=== PATIENT | male | born 1960 | race African-American/Black ===

== ENCOUNTER 2017-06-27 12:18 | Inpatient (IN) | payer OTHER ==
[2017-06-27 14:21] VITALS: BMI 34.7
--- NOTE | 2017-06-27 17:42 | HP ---
Admission ROS [facility] Chief Complaint: REHAB SERVICES Allergies/Adverse Reactions: Allergies Allergy/AdvReac Type Severity Reaction Status Date / Time shellfish derived Allergy Severe Swelling Verified 06/27/17 16:25 NKDA Allergy Uncoded 06/27/17 16:26 History of Present Illness: 56 Y.O. MAN WITH AN EXTENSIVE HISTORY OF COCAINE AND ALCOHOL DEPENDENCE IS HERE SEEKING HIS FIRST ADMISSION TO REHAB. DOES NOT HAVE A SIGNIFICANT PERIOD CLEAN. Exam Limitations: No Limitations - Ebola screening Have you traveled outside of the country in the last 21 days: No (N) Have you had contact with anyone from an Ebola affected area: No Have you been sick,other than usual withdrawal symptoms: No Do you have a fever: No - Review of Systems Constitutional: No Symptoms Reported EENT: reports: No Symptoms Reported Respiratory: reports: No Symptoms reported Cardiac: reports: No Symptoms Reported GI: reports: No Symptoms Reported : reports: Frequency, Other (HESITANCY) Musculoskeletal: reports: No Symptoms Reported Integumentary: reports: No Symptoms Reported Neuro: reports: No Symptoms reported Endocrine: reports: No Symptoms Reported Hematology: reports: No Symptoms Reported Psychiatric: reports: Judgement Intact, Mood/Affect Appropiate Other Systems: Reviewed and Negative Patient History - Patient Medical History Hx Anemia: No Hx Asthma: Yes Hx Chronic Obstructive Pulmonary Disease (COPD): No Hx Cancer: No Hx Cardiac Disorders: No Hx Congestive Heart Failure: No Hx Hypertension: Yes Hx Hypercholesterolemia: Yes Hx Pacemaker: No HX Cerebrovascular Accident: No Hx Seizures: No Hx Dementia: No Hx Diabetes: Yes (IDDM) Hx Gastrointestinal Disorders: No Hx Liver Disease: No Hx Genitourinary Disorders: No Hx Sexually Transmitted Disorders: No Hx Renal Disease (ESRD): Yes (JENNY ) Hx Thyroid Disease: Yes (HYPOTHYROID ) Hx Human Immunodeficiency Virus (HIV): No Hx Hepatitis C: No Hx Depression: No Hx Suicide Attempt: No Hx Bipolar Disorder: No Hx Schizophrenia: No - Patient Surgical History Past Surgical History: Yes Hx Neurologic Surgery: No Hx Cataract Extraction: No Hx Cardiac Surgery: No Hx Lung Surgery: No Hx Breast Surgery: No Hx Breast Biopsy: No Hx Abdominal Surgery: Yes (umbilical hernia repair in 2009) Hx Appendectomy: No Hx Cholecystectomy: No Hx Genitourinary Surgery: No Hx Section: No Hx Orthopedic Surgery: No Anesthesia Reaction: No - PPD History Previous Implant?: Yes Documented Results: Negative w/o proof Implanted On Prior [facility] Admission?: No PPD to be Administered?: Yes - Reproductive History Patient is a Female of Child Bearing Age (11 -55 yrs old): No - Smoking Cessation Smoking history: Current every day smoker Have you smoked in the past 12 months: Yes Aproximately how many cigarettes per day: 7 Hx Chewing Tobacco Use: No Initiated information on smoking cessation: Yes 'Breaking Loose' booklet given: 06/27/17 - Substance & Tx. History Hx Alcohol Use: Yes Hx Substance Use: Yes Substance Use Type: Alcohol, Cocaine Hx Substance Use Treatment: No - Substances Abused Crack Route: Smoking Frequency: 1-2 times per week Amount used: $100 Age of first use: 34 Date of Last Use: 06/20/17 [place]-beer/vodka Route: Oral Frequency: 1-2 times per week Amount used: 1 (16 oz.)/1/2 pt. Age of first use: 24 Date of Last Use: 06/23/17 Family Disease History - Family Disease History Family Disease History: Diabetes: Brother (), Heart Disease: Mother, Other: Father ( ), Brother Admission Physical Exam S - Vital Signs Vital Signs: Vital Signs - 24 hr 06/27/17 14:09 Temperature 98.9 F Pulse Rate 73 Respiratory 18 Rate Blood Pressure 160/92 - Physical General Appearance: Yes: Disheveled, Obese, Anxious HEENTM: Yes: Hearing grossly Normal, Normal ENT Inspection, Normal Voice Respiratory: Yes: Chest Non-Tender, Lungs Clear, Normal Breath Sounds, No Respiratory Distress, No Accessory Muscle Use Neck: Yes: No masses,lesions,Nodules, Trachea in good position Breast: Yes: Breast Exam Deferred Cardiology: Yes: Regular Rhythm, Regular Rate Abdominal: Yes: Normal Bowel Sounds, Non Tender, Flat Genitourinary: Yes: Frequency, Hesitency Back: Yes: Normal Inspection Musculoskeletal: Yes: full range of Motion, Gait Steady Extremities: Yes: Normal Inspection, Normal Range of Motion, Non-Tender Neurological: Yes: Alert, Normal Mood/Affect, Normal Response Integumentary: Yes: Normal Color, Dry, Warm Lymphatic: Yes: Within Normal Limits - Diagnostic (1) Asthma Current Visit: Yes Status: Chronic (2) Hypertension Current Visit: Yes Status: Chronic (3) Hyperlipidemia Current Visit: Yes Status: Chronic (4) JENNY (acute kidney injury) Current Visit: Yes Status: Acute (5) Hypothyroid Current Visit: Yes Status: Chronic (6) Insulin dependent diabetes mellitus Current Visit: Yes Status: Chronic (7) Cocaine dependence Current Visit: Yes Status: Chronic (8) Alcohol dependence, uncomplicated Current Visit: Yes Status: Chronic Cleared for Admission [facility] - Detox or Rehab [facility] Level of Care: Observation Bed Claeared for Rehab Admission: Yes [facility] Breath Alcohol Content Breath Alcohol Content: 0 Urine Drug Screen - Results Drug Screen Negative: No Urine Drug Screen Results: MANUEL-Cocaine, OXY-Oxycodone Inpatient Rehab Admission - Initial Determination Are CD services needed?: Yes Free of communicable disease: Yes Not in need of hospitalization: Yes - Rehab Admission Criteria Previous failed treatment: Yes Poor recovery environment: Yes Comorbidities: Yes Lacks judgement: Yes Patient is meeting Inpatient Rehab admission criteria:: Yes
[2017-06-27] MEDS ORDERED: MAG HYDROX/AL HYDROX/SIMETH 30 ML UNIT-DOSE CUP PO PRN (18:01)
[2017-06-27] MEDS ORDERED: LOPERAMIDE HCL 2 MG CAPSULE PO PRN (18:01)
[2017-06-27] MEDS ORDERED: ACETAMINOPHEN 325 MG TABLET (FP) PO PRN (18:01)
[2017-06-27] MEDS ORDERED: MAGNESIUM HYDROX 2400MG/30ML ORAL SUSPENSION 30 ML CUP PO PRN (18:01)
[2017-06-27] MEDS ORDERED: guaiFENesin/D-METHORPHAN HB 10 ML UNIT-DOSE CUPS PO PRN (18:01)
[2017-06-27] MEDS ORDERED: MENTHOL/PHENOL 1 EACH UD MM PRN (18:01)
[2017-06-27] MEDS ORDERED: P-EPHED 60MG/TRIPROLIDI 2.5MG TABLET PO PRN (18:01)
[2017-06-27] MEDS ORDERED: MAGNESIUM CITRATE 300 ML BOTTLE PO PRN (18:01)
[2017-06-27] MEDS ORDERED: ALBUTEROL SO4 18 GM HFA INHALER IH PRN (18:03)
[2017-06-27] MEDS ORDERED: TUBERCULIN PPD 5 TU/0.1ML VIAL ID ONE (19:33)
[2017-06-27] MEDS: THIAMINE HCL 100 MG TABLET (FP) PO SCH (21:16)
[2017-06-27 22:28] LABS: URINE APPEARANCE CLEAR; URINE BILIRUBIN NEGATIVE (NEGATIVE); URINE BLOOD NEGATIVE (NEGATIVE); URINE COLOR STRAW; URINE GLUCOSE (UA) NEGATIVE (NEGATIVE); URINE KETONE NEGATIVE (NEGATIVE); URINE LEUK ESTERASE NEGATIVE (NEGATIVE); URINE NITRITE NEGATIVE (NEGATIVE); URINE UROBILINOGEN NEGATIVE mg/dL (0.2-1.0)
[2017-06-27 22:37] LABS: URINE PROTEIN 2+ (NEGATIVE)
[2017-06-27 22:50] LABS: URINE HYALINE CAST 1 /lpf
[2017-06-28] MEDS: glipiZIDE-XL 10 MG TAB.ER.24 (FP) PO SCH (06:26)
[2017-06-28] MEDS: LEVOTHYROXINE NA 100 MCG TABLET (FP) PO SCH (06:26)
[2017-06-28] MEDS: INSULIN SLIDING SCALE (NOVOLOG) 1 VIAL SQ SCH ×3 (06:27→16:45)
[2017-06-28] MEDS: ASPIRIN 81 MG CHEWABLE TABLETS PO SCH (09:42)
[2017-06-28] MEDS: LISINOPRIL 10 MG TABLET (FP) PO SCH (09:42)
[2017-06-28] MEDS: PRENATAL VITAMINS W/ FOLIC ACID TABLET (FP) PO SCH (09:42)
[2017-06-28 10:37] LABS: HEMATOCRIT 33.9 % (35.4-49); MCH 29.2 pg (25.7-33.7); MCHC 32.6 g/dl (32.0-35.9); MEAN CELL VOLUME 89.6 fl (80-96); MEAN PLT VOLUME 9.7 fl (7.5-11.1); PLATELET COUNT 205 K/MM3 (134-434); RBC 3.78 M/mm3 (4.00-5.60); WHITE BLOOD COUNT 5.4 K/mm3 (4.0-10.0)
[2017-06-28 10:50] LABS: ALBUMIN 3.5 g/dl (3.4-5.0); ANION GAP 5 (8-16); BLOOD UREA NITROGEN 32 mg/dL (7-18); CALCIUM 8.3 mg/dL (8.5-10.1); CHLORIDE 107 mmol/L (98-107); CO2 27 mmol/L (21-32); CREATININE 4.4 mg/dL (0.7-1.3); GLUCOSE,RANDOM 87 mg/dL (74-106); POTASSIUM 5.2 mmol/L (3.5-5.1); SGOT/AST 38 U/L (15-37); SGPT/ALT 36 U/L (12-78); SODIUM 139 mmol/L (136-145)
[2017-06-28 10:51] LABS: ALK PHOS 54 U/L (45-117); BILIRUBIN,TOTAL 0.5 mg/dL (0.2-1.0); TOT PROT 6.7 g/dl (6.4-8.2)
[2017-06-28] MEDS ORDERED: INSULIN (NOVOLOG) ASPART 100 UNITS/ML 10ML VIAL ONE ×2 (11:56→16:46)
--- NOTE | 2017-06-28 15:58 | EKG ---
Test Reason : Blood Pressure : / mmHG Vent. Rate : 062 BPM Atrial Rate : 062 BPM P-R Int : 188 ms QRS Dur : 110 ms QT Int : 426 ms P-R-T Axes : 066 071 130 degrees QTc Int : 432 ms NORMAL SINUS RHYTHM WITH SINUS ARRHYTHMIA NONSPECIFIC T WAVE ABNORMALITY ABNORMAL ECG NO PREVIOUS ECGS AVAILABLE Confirmed by JOANN LINTON MD ([id number]) on 06/28/2017 3:58:16 PM Referred By: Confirmed By:JOANN LINTON MD
[2017-06-28] MEDS: THIAMINE HCL 100 MG TABLET (FP) PO SCH (21:04)
[2017-06-29] MEDS: LEVOTHYROXINE NA 100 MCG TABLET (FP) PO SCH (06:02)
[2017-06-29] MEDS: INSULIN SLIDING SCALE (NOVOLOG) 1 VIAL SQ SCH ×3 (06:02→16:35)
[2017-06-29] MEDS: glipiZIDE-XL 10 MG TAB.ER.24 (FP) PO SCH (06:02)
[2017-06-29] MEDS: LISINOPRIL 10 MG TABLET (FP) PO SCH (09:45)
[2017-06-29] MEDS: ASPIRIN 81 MG CHEWABLE TABLETS PO SCH (09:45)
[2017-06-29] MEDS: PRENATAL VITAMINS W/ FOLIC ACID TABLET (FP) PO SCH (09:45)
[2017-06-29] MEDS ORDERED: SODIUM POLYSTYRENE SULFONATE 15 GM/60 ML BOTTLE PO ONE (19:09)
--- NOTE | 2017-06-29 19:09 | PN ---
[facility] Progress Note Note: Lab with high K+ value (5.2), 15g kayexalate ordered because BUN and CREAT are elevated. Repeat BMP tomorrow.
[2017-06-29] MEDS: THIAMINE HCL 100 MG TABLET (FP) PO SCH (21:04)
[2017-06-30] MEDS: hydrOXYzine PAMOATE 50 MG CAPSULE (FP) PO PRN (03:21)
[2017-06-30] MEDS: LEVOTHYROXINE NA 100 MCG TABLET (FP) PO SCH (06:31)
[2017-06-30] MEDS: glipiZIDE-XL 10 MG TAB.ER.24 (FP) PO SCH (06:31)
[2017-06-30] MEDS: INSULIN SLIDING SCALE (NOVOLOG) 1 VIAL SQ SCH ×3 (06:32→16:49)
[2017-06-30] MEDS: ASPIRIN 81 MG CHEWABLE TABLETS PO SCH (09:53)
[2017-06-30] MEDS: PRENATAL VITAMINS W/ FOLIC ACID TABLET (FP) PO SCH (09:53)
[2017-06-30] MEDS: LISINOPRIL 10 MG TABLET (FP) PO SCH (09:53)
[2017-06-30 14:29] LABS: ANION GAP 4 (8-16); BLOOD UREA NITROGEN 41 mg/dL (7-18); CALCIUM 8.7 mg/dL (8.5-10.1); CHLORIDE 106 mmol/L (98-107); CO2 30 mmol/L (21-32); CREATININE 4.2 mg/dL (0.7-1.3); GLUCOSE,RANDOM 102 mg/dL (74-106); SODIUM 140 mmol/L (136-145)
--- NOTE | 2017-06-30 15:31 | HP ---
Psychiatrist Admission - Data Date of interview: 06/30/17 Admission source: [facility] Identifying data: This is the first 5N inpatient rehabilitation admission for this 56 year old AA male father of 4, supported by [facility] and currently homeless. Medical History: asthma, HTN, hypercholesterolemia, IDDM, acute kidney injury, hypothyroidism, umbilical hernia, smokes cigarettes 7 a day Psychiatric History: Patient denies contact with a psychiatrist but states he feels depressed due to the loss of his year ago and being homeless. Physical/Sexual Abuse/Trauma History: Denies history of sexual, physical and verbal abuse. Additional Comment: Patient reports he never been in rehab/detox. treatment. Vital Signs: Vital Signs - 24 hr 06/30/17 06/30/17 00:30 06:44 Temperature 98.0 F Pulse Rate 72 Respiratory 18 18 Rate Blood Pressure 155/83 Allergies/Adverse Reactions: Allergies Allergy/AdvReac Type Severity Reaction Status Date / Time shellfish derived Allergy Severe Swelling Verified 06/27/17 16:25 No Known Drug Allergies Allergy Verified 06/27/17 18:32 NKDA Allergy Uncoded 06/27/17 16:26 Date of last physical exam: 06/27/17 Concur with the findings of this exam: Yes - Substance Abuse/Tx History Hx Alcohol Use: Yes (1-2 times a week, 6 oz beer, 1/2 pint vodka) Hx Substance Use: Yes Substance Use Type: Cocaine ($100 1-2 times a week) Hx Substance Use Treatment: No Mental Status Exam - Mental Status Exam Alert and Oriented to: Time, Place, Person Cognitive Function: Grossly Intact Patient Appearance: Unkempt Mood: Depressed, Sad Affect: Appropriate, Mood Congruent Patient Behavior: Appropriate, Cooperative Speech Pattern: Clear, Appropriate Voice Loudness: Normal Thought Process: Intact, Goal Oriented Thought Disorder: Not Present Hallucinations: Denies Suicidal Ideation: Denies Homicidal Ideation: Denies Insight/Judgement: Fair Sleep: Fair Appetite: Good Muscle strength/Tone: Normal Gait/Station: Normal Psychiatric Findings - Problem List ([place] 1, 2,3) (1) Alcohol dependence Current Visit: Yes Status: Acute (2) Nicotine dependence Current Visit: Yes Status: Acute (3) Bereavement Current Visit: Yes Status: Acute (4) Cocaine dependence Current Visit: Yes Status: Chronic - Initial Treatment Plan Initial Treatment Plan: psychoeducation and supportive therapy provided, monitor progress.
[2017-06-30] MEDS: THIAMINE HCL 100 MG TABLET (FP) PO SCH (21:03)
[2017-07-01] MEDS: INSULIN SLIDING SCALE (NOVOLOG) 1 VIAL SQ SCH ×3 (06:00→17:08)
[2017-07-01] MEDS: LEVOTHYROXINE NA 100 MCG TABLET (FP) PO SCH (06:00)
[2017-07-01] MEDS: glipiZIDE-XL 10 MG TAB.ER.24 (FP) PO SCH (06:00)
[2017-07-01] MEDS: LISINOPRIL 10 MG TABLET (FP) PO SCH (09:38)
[2017-07-01] MEDS: PRENATAL VITAMINS W/ FOLIC ACID TABLET (FP) PO SCH (09:38)
[2017-07-01] MEDS: ASPIRIN 81 MG CHEWABLE TABLETS PO SCH (09:38)
--- NOTE | 2017-07-01 09:47 | PN ---
[facility] Progress Note (SOAP) Subjective: C/O CORNS AND CALUSES ANDPAINFUL DRY FEET. Objective: 07/01/17 09:45 Vital Signs - 24 hr 07/01/17 07/01/17 07/01/17 00:30 03:30 06:33 Temperature 98.1 F Pulse Rate 81 Respiratory 18 18 18 Rate Blood Pressure 147/73 Laboratory Tests 06/27/17 06/27/17 06/27/17 16:50 19:41 20:11 WBC RBC Hgb Hct MCV MCH MCHC RDW Plt Count MPV Sodium Potassium Chloride Carbon Dioxide Anion Gap BUN Creatinine Creat Clearance w eGFR POC Glucometer 153 83 Random Glucose Calcium Total Bilirubin AST ALT Alkaline Phosphatase Total Protein Albumin Urine Color Straw Urine Appearance Clear Urine pH 5.0 Ur Specific [place] 1.012 Urine Protein 2+ H Urine Glucose (UA) Negative Urine Ketones Negative Urine Blood Negative Urine Nitrite Negative Urine Bilirubin Negative Urine Urobilinogen Negative Ur Leukocyte Esterase Negative Urine WBC (Auto) <1 Urine RBC (Auto) <1 Hyaline Casts 1 RPR Titer 06/28/17 06/28/17 06/28/17 06:26 08:00 08:00 WBC 5.4 RBC 3.78 L Hgb 11.0 L Hct 33.9 L MCV 89.6 MCH 29.2 MCHC 32.6 RDW 15.0 Plt Count 205 MPV 9.7 Sodium 139 Potassium 5.2 H Chloride 107 Carbon Dioxide 27 Anion Gap 5 L BUN 32 H Creatinine 4.4 H Creat Clearance w eGFR 13.93 POC Glucometer 87 Random Glucose 87 Calcium 8.3 L Total Bilirubin 0.5 AST 38 H ALT 36 Alkaline Phosphatase 54 Total Protein 6.7 Albumin 3.5 Urine Color Urine Appearance Urine pH Ur Specific [place] Urine Protein Urine Glucose (UA) Urine Ketones Urine Blood Urine Nitrite Urine Bilirubin Urine Urobilinogen Ur Leukocyte Esterase Urine WBC (Auto) Urine RBC (Auto) Hyaline Casts RPR Titer 06/28/17 06/28/17 06/28/17 08:00 11:50 16:44 WBC RBC Hgb Hct MCV MCH MCHC RDW Plt Count MPV Sodium Potassium Chloride Carbon Dioxide Anion Gap BUN Creatinine Creat Clearance w eGFR POC Glucometer 130 162 Random Glucose Calcium Total Bilirubin AST ALT Alkaline Phosphatase Total Protein Albumin Urine Color Urine Appearance Urine pH Ur Specific [place] Urine Protein Urine Glucose (UA) Urine Ketones Urine Blood Urine Nitrite Urine Bilirubin Urine Urobilinogen Ur Leukocyte Esterase Urine WBC (Auto) Urine RBC (Auto) Hyaline Casts RPR Titer Nonreactive 06/29/17 06/29/17 06/29/17 06:02 12:07 16:34 WBC RBC Hgb Hct MCV MCH MCHC RDW Plt Count MPV Sodium Potassium Chloride Carbon Dioxide Anion Gap BUN Creatinine Creat Clearance w eGFR POC Glucometer 94 99 129 Random Glucose Calcium Total Bilirubin AST ALT Alkaline Phosphatase Total Protein Albumin Urine Color Urine Appearance Urine pH Ur Specific [place] Urine Protein Urine Glucose (UA) Urine Ketones Urine Blood Urine Nitrite Urine Bilirubin Urine Urobilinogen Ur Leukocyte Esterase Urine WBC (Auto) Urine RBC (Auto) Hyaline Casts RPR Titer 06/30/17 06/30/17 06/30/17 06:31 08:40 10:40 WBC RBC Hgb Hct MCV MCH MCHC RDW Plt Count MPV Sodium Cancelled 140 Potassium Cancelled 5.0 Chloride Cancelled 106 Carbon Dioxide Cancelled 30 Anion Gap Cancelled 4 L BUN Cancelled 41 H D Creatinine Cancelled 4.2 H Creat Clearance w eGFR POC Glucometer 115 Random Glucose Cancelled 102 Calcium Cancelled 8.7 Total Bilirubin AST ALT Alkaline Phosphatase Total Protein Albumin Urine Color Urine Appearance Urine pH Ur Specific [place] Urine Protein Urine Glucose (UA) Urine Ketones Urine Blood Urine Nitrite Urine Bilirubin Urine Urobilinogen Ur Leukocyte Esterase Urine WBC (Auto) Urine RBC (Auto) Hyaline Casts RPR Titer 06/30/17 06/30/17 07/01/17 12:00 16:49 06:00 WBC RBC Hgb Hct MCV MCH MCHC RDW Plt Count MPV Sodium Potassium Chloride Carbon Dioxide Anion Gap BUN Creatinine Creat Clearance w eGFR POC Glucometer 120 190 118 Random Glucose Calcium Total Bilirubin AST ALT Alkaline Phosphatase Total Protein Albumin Urine Color Urine Appearance Urine pH Ur Specific [place] Urine Protein Urine Glucose (UA) Urine Ketones Urine Blood Urine Nitrite Urine Bilirubin Urine Urobilinogen Ur Leukocyte Esterase Urine WBC (Auto) Urine RBC (Auto) Hyaline Casts RPR Titer K WNL, ELEVATED BUN AND CFEATININE, JENNY Assessment: 07/01/17 09:46 CORNS , CALLUSSES, ATHLETES , FOOT 0 - REFER TO CHECKER LOADER WHEN DISCHARGED, LOTRISONE CREAM FOR NOW, FLUIDS, FOR JENNY REFER NEPHROLOGY FWHEN D/C , CONTRORL DIABESETES
[2017-07-01] MEDS ORDERED: INSULIN (NOVOLOG) ASPART 100 UNITS/ML 10ML VIAL ONE (12:08)
[2017-07-01] MEDS: TOLNAFTATE 1% CREAM 15 GM TUBE TP SCH ×2 (13:36→21:07)
--- NOTE | 2017-07-01 13:57 | EKG ---
Test Reason : Blood Pressure : / mmHG Vent. Rate : 069 BPM Atrial Rate : 069 BPM P-R Int : 192 ms QRS Dur : 118 ms QT Int : 420 ms P-R-T Axes : 061 069 116 degrees QTc Int : 450 ms NORMAL SINUS RHYTHM NON-SPECIFIC INTRA-VENTRICULAR CONDUCTION DELAY NONSPECIFIC T WAVE ABNORMALITY ABNORMAL ECG WHEN COMPARED WITH ECG OF 27-JUN-2017 22:52, NO SIGNIFICANT CHANGE WAS FOUND Confirmed by MD Carmen, Anurag ([id number]) on 07/01/2017 1:57:49 PM Referred By: Confirmed By:Anurag Morales MD
[2017-07-01 14:58] LABS: CHLORIDE 106 mmol/L (98-107); SODIUM 138 mmol/L (136-145)
[2017-07-01 15:12] LABS: ALBUMIN 3.5 g/dl (3.4-5.0); ALK PHOS 57 U/L (45-117); ANION GAP 6 (8-16); BILIRUBIN,TOTAL 0.7 mg/dL (0.2-1.0); BLOOD UREA NITROGEN 35 mg/dL (7-18); CO2 26 mmol/L (21-32); CREATININE 4.1 mg/dL (0.7-1.3); GLUCOSE,RANDOM 156 mg/dL (74-106); SGOT/AST 35 U/L (15-37); SGPT/ALT 35 U/L (12-78); TOT PROT 6.5 g/dl (6.4-8.2)
[2017-07-01] MEDS: THIAMINE HCL 100 MG TABLET (FP) PO SCH (21:06)
[2017-07-02] MEDS: LEVOTHYROXINE NA 100 MCG TABLET (FP) PO SCH (06:04)
[2017-07-02] MEDS: INSULIN SLIDING SCALE (NOVOLOG) 1 VIAL SQ SCH ×3 (06:04→16:41)
[2017-07-02] MEDS: glipiZIDE-XL 10 MG TAB.ER.24 (FP) PO SCH (06:04)
[2017-07-02] MEDS: PRENATAL VITAMINS W/ FOLIC ACID TABLET (FP) PO SCH (10:06)
[2017-07-02] MEDS: TOLNAFTATE 1% CREAM 15 GM TUBE TP SCH ×2 (10:07→21:09)
[2017-07-02] MEDS: ASPIRIN 81 MG CHEWABLE TABLETS PO SCH (10:07)
[2017-07-02] MEDS: LISINOPRIL 10 MG TABLET (FP) PO SCH (10:07)
[2017-07-02] MEDS ORDERED: INSULIN (NOVOLOG) ASPART 100 UNITS/ML 10ML VIAL ONE ×2 (12:14→16:50)
[2017-07-02] MEDS: THIAMINE HCL 100 MG TABLET (FP) PO SCH (21:08)
[2017-07-03] MEDS: glipiZIDE-XL 10 MG TAB.ER.24 (FP) PO SCH (06:01)
[2017-07-03] MEDS: INSULIN SLIDING SCALE (NOVOLOG) 1 VIAL SQ SCH ×3 (06:01→17:07)
[2017-07-03] MEDS: LEVOTHYROXINE NA 100 MCG TABLET (FP) PO SCH (06:01)
[2017-07-03] MEDS: TOLNAFTATE 1% CREAM 15 GM TUBE TP SCH ×2 (09:55→21:12)
[2017-07-03] MEDS: ASPIRIN 81 MG CHEWABLE TABLETS PO SCH (09:55)
[2017-07-03] MEDS: LISINOPRIL 10 MG TABLET (FP) PO SCH (09:55)
[2017-07-03] MEDS: PRENATAL VITAMINS W/ FOLIC ACID TABLET (FP) PO SCH (09:55)
[2017-07-03] MEDS ORDERED: INSULIN (NOVOLOG) ASPART 100 UNITS/ML 10ML VIAL ONE (11:55)
[2017-07-03] MEDS: THIAMINE HCL 100 MG TABLET (FP) PO SCH (21:11)
[2017-07-04] MEDS: LEVOTHYROXINE NA 100 MCG TABLET (FP) PO SCH (06:07)
[2017-07-04] MEDS: glipiZIDE-XL 10 MG TAB.ER.24 (FP) PO SCH (06:07)
[2017-07-04] MEDS: INSULIN SLIDING SCALE (NOVOLOG) 1 VIAL SQ SCH ×3 (06:14→16:40)
[2017-07-04] MEDS: PRENATAL VITAMINS W/ FOLIC ACID TABLET (FP) PO SCH (09:42)
[2017-07-04] MEDS: LISINOPRIL 10 MG TABLET (FP) PO SCH (09:42)
[2017-07-04] MEDS: ASPIRIN 81 MG CHEWABLE TABLETS PO SCH (09:42)
[2017-07-04] MEDS: TOLNAFTATE 1% CREAM 15 GM TUBE TP SCH ×2 (09:43→21:06)
[2017-07-04] MEDS ORDERED: INSULIN (NOVOLOG) ASPART 100 UNITS/ML 10ML VIAL ONE (11:51)
[2017-07-04] MEDS: THIAMINE HCL 100 MG TABLET (FP) PO SCH (21:05)
[2017-07-05] MEDS: glipiZIDE-XL 10 MG TAB.ER.24 (FP) PO SCH (06:26)
[2017-07-05] MEDS: LEVOTHYROXINE NA 100 MCG TABLET (FP) PO SCH (06:26)
[2017-07-05] MEDS: INSULIN SLIDING SCALE (NOVOLOG) 1 VIAL SQ SCH ×3 (06:27→16:40)
[2017-07-05] MEDS: ASPIRIN 81 MG CHEWABLE TABLETS PO SCH (09:44)
[2017-07-05] MEDS: LISINOPRIL 10 MG TABLET (FP) PO SCH (09:44)
[2017-07-05] MEDS: PRENATAL VITAMINS W/ FOLIC ACID TABLET (FP) PO SCH (09:44)
[2017-07-05] MEDS: TOLNAFTATE 1% CREAM 15 GM TUBE TP SCH ×2 (09:46→21:03)
[2017-07-05] MEDS ORDERED: INSULIN (NOVOLOG) ASPART 100 UNITS/ML 10ML VIAL ONE (12:07)
[2017-07-05] MEDS: THIAMINE HCL 100 MG TABLET (FP) PO SCH (21:03)
[2017-07-06] MEDS: hydrOXYzine PAMOATE 50 MG CAPSULE (FP) PO PRN (00:44)
[2017-07-06] MEDS: INSULIN SLIDING SCALE (NOVOLOG) 1 VIAL SQ SCH ×3 (06:30→16:43)
[2017-07-06] MEDS: glipiZIDE-XL 10 MG TAB.ER.24 (FP) PO SCH (06:30)
[2017-07-06] MEDS: LEVOTHYROXINE NA 100 MCG TABLET (FP) PO SCH (06:30)
[2017-07-06] MEDS: PRENATAL VITAMINS W/ FOLIC ACID TABLET (FP) PO SCH (10:08)
[2017-07-06] MEDS: ASPIRIN 81 MG CHEWABLE TABLETS PO SCH (10:08)
[2017-07-06] MEDS: TOLNAFTATE 1% CREAM 15 GM TUBE TP SCH ×2 (10:08→21:08)
[2017-07-06] MEDS: LISINOPRIL 10 MG TABLET (FP) PO SCH (10:08)
[2017-07-06] MEDS ORDERED: INSULIN (NOVOLOG) ASPART 100 UNITS/ML 10ML VIAL ONE (12:12)
[2017-07-06] MEDS: THIAMINE HCL 100 MG TABLET (FP) PO SCH (21:07)
[2017-07-07] MEDS: LEVOTHYROXINE NA 100 MCG TABLET (FP) PO SCH (06:38)
[2017-07-07] MEDS: glipiZIDE-XL 10 MG TAB.ER.24 (FP) PO SCH (06:38)
[2017-07-07] MEDS: INSULIN SLIDING SCALE (NOVOLOG) 1 VIAL SQ SCH ×3 (06:39→17:37)
[2017-07-07] MEDS: PRENATAL VITAMINS W/ FOLIC ACID TABLET (FP) PO SCH (10:41)
[2017-07-07] MEDS: LISINOPRIL 10 MG TABLET (FP) PO SCH (10:41)
[2017-07-07] MEDS: ASPIRIN 81 MG CHEWABLE TABLETS PO SCH (10:41)
[2017-07-07] MEDS: TOLNAFTATE 1% CREAM 15 GM TUBE TP SCH ×2 (10:42→21:01)
[2017-07-07 12:08] LABS: ANION GAP 5 (8-16); BLOOD UREA NITROGEN 43 mg/dL (7-18); CALCIUM 8.3 mg/dL (8.5-10.1); CHLORIDE 105 mmol/L (98-107); CO2 28 mmol/L (21-32); CREATININE 3.7 mg/dL (0.7-1.3); GLUCOSE,RANDOM 198 mg/dL (74-106); POTASSIUM 5.4 mmol/L (3.5-5.1); SODIUM 138 mmol/L (136-145)
[2017-07-07] MEDS: THIAMINE HCL 100 MG TABLET (FP) PO SCH (21:00)
[2017-07-08] MEDS: hydrOXYzine PAMOATE 50 MG CAPSULE (FP) PO PRN (03:10)
[2017-07-08] MEDS: glipiZIDE-XL 10 MG TAB.ER.24 (FP) PO SCH (06:06)
[2017-07-08] MEDS: LEVOTHYROXINE NA 100 MCG TABLET (FP) PO SCH (06:06)
[2017-07-08] MEDS: INSULIN SLIDING SCALE (NOVOLOG) 1 VIAL SQ SCH ×3 (06:07→16:39)
[2017-07-08] MEDS ORDERED: INSULIN (NOVOLOG) ASPART 100 UNITS/ML 10ML VIAL ONE ×2 (06:31→12:02)
[2017-07-08 09:46] LABS: BASO % 1.2 % (0-2.0); EOS % 2.9 % (0-4.5); HEMATOCRIT 31.6 % (35.4-49); HEMOGLOBIN 10.3 GM/dL (11.7-16.9); LYMPH % 34.5 % (8-40); MCH 29.5 pg (25.7-33.7); MCHC 32.7 g/dl (32.0-35.9); MEAN CELL VOLUME 90.3 fl (80-96); MEAN PLT VOLUME 9.7 fl (7.5-11.1); MONO % 7.8 % (3.8-10.2); NEUT % 53.6 % (42.8-82.8); PLATELET COUNT 192 K/MM3 (134-434); RDW 15.3 % (11.9-15.9); WHITE BLOOD COUNT 4.3 K/mm3 (4.0-10.0)
[2017-07-08] MEDS: ASPIRIN 81 MG CHEWABLE TABLETS PO SCH (09:48)
[2017-07-08] MEDS: TOLNAFTATE 1% CREAM 15 GM TUBE TP SCH ×2 (09:49→21:07)
[2017-07-08] MEDS: PRENATAL VITAMINS W/ FOLIC ACID TABLET (FP) PO SCH (09:49)
[2017-07-08] MEDS: LISINOPRIL 10 MG TABLET (FP) PO SCH (09:49)
[2017-07-08 09:54] LABS: CHLORIDE 110 mmol/L (98-107); POTASSIUM 5.6 mmol/L (3.5-5.1); SODIUM 140 mmol/L (136-145)
[2017-07-08 10:01] LABS: ALBUMIN 3.4 g/dl (3.4-5.0); ALK PHOS 56 U/L (45-117); ANION GAP 6 (8-16); BILIRUBIN,TOTAL 0.4 mg/dL (0.2-1.0); BLOOD UREA NITROGEN 44 mg/dL (7-18); CO2 24 mmol/L (21-32); CREATININE 3.7 mg/dL (0.7-1.3); GLUCOSE,RANDOM 97 mg/dL (74-106); SGOT/AST 43 U/L (15-37); SGPT/ALT 48 U/L (12-78); TOT PROT 6.6 g/dl (6.4-8.2)
[2017-07-08] MEDS ORDERED: FUROSEMIDE 20 MG TABLET (FP) PO ONE (10:51)
--- NOTE | 2017-07-08 10:56 | PN ---
[facility] Progress Note (SOAP) Subjective: PATIENT HAS ELEVATED k, UNHAPPY ABOUT BLOODWORK BEING DRAWN Objective: 07/08/17 10:55 Vital Signs - 24 hr 07/08/17 07/08/17 00:30 06:41 Temperature 97.8 F Pulse Rate 82 Respiratory 18 20 Rate Blood Pressure 145/81 Laboratory Tests 06/27/17 06/27/17 06/27/17 16:50 19:41 20:11 WBC RBC Hgb Hct MCV MCH MCHC RDW Plt Count MPV Neutrophils % Lymphocytes % Monocytes % Eosinophils % Basophils % Sodium Potassium Chloride Carbon Dioxide Anion Gap BUN Creatinine Creat Clearance w eGFR POC Glucometer 153 83 Random Glucose Calcium Magnesium Total Bilirubin AST ALT Alkaline Phosphatase Total Protein Albumin Urine Color Straw Urine Appearance Clear Urine pH 5.0 Ur Specific [place] 1.012 Urine Protein 2+ H Urine Glucose (UA) Negative Urine Ketones Negative Urine Blood Negative Urine Nitrite Negative Urine Bilirubin Negative Urine Urobilinogen Negative Ur Leukocyte Esterase Negative Urine WBC (Auto) <1 Urine RBC (Auto) <1 Hyaline Casts 1 RPR Titer 06/28/17 06/28/17 06/28/17 06:26 08:00 08:00 WBC 5.4 RBC 3.78 L Hgb 11.0 L Hct 33.9 L MCV 89.6 MCH 29.2 MCHC 32.6 RDW 15.0 Plt Count 205 MPV 9.7 Neutrophils % Lymphocytes % Monocytes % Eosinophils % Basophils % Sodium 139 Potassium 5.2 H Chloride 107 Carbon Dioxide 27 Anion Gap 5 L BUN 32 H Creatinine 4.4 H Creat Clearance w eGFR 13.93 POC Glucometer 87 Random Glucose 87 Calcium 8.3 L Magnesium Total Bilirubin 0.5 AST 38 H ALT 36 Alkaline Phosphatase 54 Total Protein 6.7 Albumin 3.5 Urine Color Urine Appearance Urine pH Ur Specific [place] Urine Protein Urine Glucose (UA) Urine Ketones Urine Blood Urine Nitrite Urine Bilirubin Urine Urobilinogen Ur Leukocyte Esterase Urine WBC (Auto) Urine RBC (Auto) Hyaline Casts RPR Titer 06/28/17 06/28/17 06/28/17 08:00 11:50 16:44 WBC RBC Hgb Hct MCV MCH MCHC RDW Plt Count MPV Neutrophils % Lymphocytes % Monocytes % Eosinophils % Basophils % Sodium Potassium Chloride Carbon Dioxide Anion Gap BUN Creatinine Creat Clearance w eGFR POC Glucometer 130 162 Random Glucose Calcium Magnesium Total Bilirubin AST ALT Alkaline Phosphatase Total Protein Albumin Urine Color Urine Appearance Urine pH Ur Specific [place] Urine Protein Urine Glucose (UA) Urine Ketones Urine Blood Urine Nitrite Urine Bilirubin Urine Urobilinogen Ur Leukocyte Esterase Urine WBC (Auto) Urine RBC (Auto) Hyaline Casts RPR Titer Nonreactive 06/29/17 06/29/17 06/29/17 06:02 12:07 16:34 WBC RBC Hgb Hct MCV MCH MCHC RDW Plt Count MPV Neutrophils % Lymphocytes % Monocytes % Eosinophils % Basophils % Sodium Potassium Chloride Carbon Dioxide Anion Gap BUN Creatinine Creat Clearance w eGFR POC Glucometer 94 99 129 Random Glucose Calcium Magnesium Total Bilirubin AST ALT Alkaline Phosphatase Total Protein Albumin Urine Color Urine Appearance Urine pH Ur Specific [place] Urine Protein Urine Glucose (UA) Urine Ketones Urine Blood Urine Nitrite Urine Bilirubin Urine Urobilinogen Ur Leukocyte Esterase Urine WBC (Auto) Urine RBC (Auto) Hyaline Casts RPR Titer 06/30/17 06/30/17 06/30/17 06:31 08:40 10:40 WBC RBC Hgb Hct MCV MCH MCHC RDW Plt Count MPV Neutrophils % Lymphocytes % Monocytes % Eosinophils % Basophils % Sodium Cancelled 140 Potassium Cancelled 5.0 Chloride Cancelled 106 Carbon Dioxide Cancelled 30 Anion Gap Cancelled 4 L BUN Cancelled 41 H D Creatinine Cancelled 4.2 H Creat Clearance w eGFR POC Glucometer 115 Random Glucose Cancelled 102 Calcium Cancelled 8.7 Magnesium Total Bilirubin AST ALT Alkaline Phosphatase Total Protein Albumin Urine Color Urine Appearance Urine pH Ur Specific [place] Urine Protein Urine Glucose (UA) Urine Ketones Urine Blood Urine Nitrite Urine Bilirubin Urine Urobilinogen Ur Leukocyte Esterase Urine WBC (Auto) Urine RBC (Auto) Hyaline Casts RPR Titer 06/30/17 06/30/17 07/01/17 12:00 16:49 06:00 WBC RBC Hgb Hct MCV MCH MCHC RDW Plt Count MPV Neutrophils % Lymphocytes % Monocytes % Eosinophils % Basophils % Sodium Potassium Chloride Carbon Dioxide Anion Gap BUN Creatinine Creat Clearance w eGFR POC Glucometer 120 190 118 Random Glucose Calcium Magnesium Total Bilirubin AST ALT Alkaline Phosphatase Total Protein Albumin Urine Color Urine Appearance Urine pH Ur Specific [place] Urine Protein Urine Glucose (UA) Urine Ketones Urine Blood Urine Nitrite Urine Bilirubin Urine Urobilinogen Ur Leukocyte Esterase Urine WBC (Auto) Urine RBC (Auto) Hyaline Casts RPR Titer 07/01/17 07/01/17 07/01/17 09:20 12:06 17:08 WBC RBC Hgb Hct MCV MCH MCHC RDW Plt Count MPV Neutrophils % Lymphocytes % Monocytes % Eosinophils % Basophils % Sodium 138 Potassium 5.0 Chloride 106 Carbon Dioxide 26 Anion Gap 6 L BUN 35 H Creatinine 4.1 H Creat Clearance w eGFR 15.12 POC Glucometer 156 107 Random Glucose 156 H D Calcium 8.0 L Magnesium Total Bilirubin 0.7 D AST 35 ALT 35 Alkaline Phosphatase 57 Total Protein 6.5 Albumin 3.5 Urine Color Urine Appearance Urine pH Ur Specific [place] Urine Protein Urine Glucose (UA) Urine Ketones Urine Blood Urine Nitrite Urine Bilirubin Urine Urobilinogen Ur Leukocyte Esterase Urine WBC (Auto) Urine RBC (Auto) Hyaline Casts RPR Titer 07/02/17 07/02/17 07/02/17 06:04 12:12 16:40 WBC RBC Hgb Hct MCV MCH MCHC RDW Plt Count MPV Neutrophils % Lymphocytes % Monocytes % Eosinophils % Basophils % Sodium Potassium Chloride Carbon Dioxide Anion Gap BUN Creatinine Creat Clearance w eGFR POC Glucometer 96 131 176 Random Glucose Calcium Magnesium Total Bilirubin AST ALT Alkaline Phosphatase Total Protein Albumin Urine Color Urine Appearance Urine pH Ur Specific [place] Urine Protein Urine Glucose (UA) Urine Ketones Urine Blood Urine Nitrite Urine Bilirubin Urine Urobilinogen Ur Leukocyte Esterase Urine WBC (Auto) Urine RBC (Auto) Hyaline Casts RPR Titer 07/03/17 07/03/17 07/03/17 06:01 11:54 16:39 WBC RBC Hgb Hct MCV MCH MCHC RDW Plt Count MPV Neutrophils % Lymphocytes % Monocytes % Eosinophils % Basophils % Sodium Potassium Chloride Carbon Dioxide Anion Gap BUN Creatinine Creat Clearance w eGFR POC Glucometer 93 173 77 Random Glucose Calcium Magnesium Total Bilirubin AST ALT Alkaline Phosphatase Total Protein Albumin Urine Color Urine Appearance Urine pH Ur Specific [place] Urine Protein Urine Glucose (UA) Urine Ketones Urine Blood Urine Nitrite Urine Bilirubin Urine Urobilinogen Ur Leukocyte Esterase Urine WBC (Auto) Urine RBC (Auto) Hyaline Casts RPR Titer 07/04/17 07/04/17 07/04/17 06:06 11:47 16:39 WBC RBC Hgb Hct MCV MCH MCHC RDW Plt Count MPV Neutrophils % Lymphocytes % Monocytes % Eosinophils % Basophils % Sodium Potassium Chloride Carbon Dioxide Anion Gap BUN Creatinine Creat Clearance w eGFR POC Glucometer 85 177 107 Random Glucose Calcium Magnesium Total Bilirubin AST ALT Alkaline Phosphatase Total Protein Albumin Urine Color Urine Appearance Urine pH Ur Specific [place] Urine Protein Urine Glucose (UA) Urine Ketones Urine Blood Urine Nitrite Urine Bilirubin Urine Urobilinogen Ur Leukocyte Esterase Urine WBC (Auto) Urine RBC (Auto) Hyaline Casts RPR Titer 07/05/17 07/05/17 07/05/17 06:26 11:58 16:39 WBC RBC Hgb Hct MCV MCH MCHC RDW Plt Count MPV Neutrophils % Lymphocytes % Monocytes % Eosinophils % Basophils % Sodium Potassium Chloride Carbon Dioxide Anion Gap BUN Creatinine Creat Clearance w eGFR POC Glucometer 102 239 115 Random Glucose Calcium Magnesium Total Bilirubin AST ALT Alkaline Phosphatase Total Protein Albumin Urine Color Urine Appearance Urine pH Ur Specific [place] Urine Protein Urine Glucose (UA) Urine Ketones Urine Blood Urine Nitrite Urine Bilirubin Urine Urobilinogen Ur Leukocyte Esterase Urine WBC (Auto) Urine RBC (Auto) Hyaline Casts RPR Titer 07/06/17 07/06/17 07/06/17 06:29 11:59 16:43 WBC RBC Hgb Hct MCV MCH MCHC RDW Plt Count MPV Neutrophils % Lymphocytes % Monocytes % Eosinophils % Basophils % Sodium Potassium Chloride Carbon Dioxide Anion Gap BUN Creatinine Creat Clearance w eGFR POC Glucometer 95 187 126 Random Glucose Calcium Magnesium Total Bilirubin AST ALT Alkaline Phosphatase Total Protein Albumin Urine Color Urine Appearance Urine pH Ur Specific [place] Urine Protein Urine Glucose (UA) Urine Ketones Urine Blood Urine Nitrite Urine Bilirubin Urine Urobilinogen Ur Leukocyte Esterase Urine WBC (Auto) Urine RBC (Auto) Hyaline Casts RPR Titer 07/06/17 07/07/17 07/07/17 21:05 06:38 10:11 WBC RBC Hgb Hct MCV MCH MCHC RDW Plt Count MPV Neutrophils % Lymphocytes % Monocytes % Eosinophils % Basophils % Sodium 138 Potassium 5.4 H Chloride 105 Carbon Dioxide 28 Anion Gap 5 L BUN 43 H D Creatinine 3.7 H Creat Clearance w eGFR POC Glucometer 140 109 Random Glucose 198 H D Calcium 8.3 L Magnesium 2.0 Total Bilirubin AST ALT Alkaline Phosphatase Total Protein Albumin Urine Color Urine Appearance Urine pH Ur Specific [place] Urine Protein Urine Glucose (UA) Urine Ketones Urine Blood Urine Nitrite Urine Bilirubin Urine Urobilinogen Ur Leukocyte Esterase Urine WBC (Auto) Urine RBC (Auto) Hyaline Casts RPR Titer 07/07/17 07/07/17 07/08/17 12:00 17:10 06:00 WBC 4.3 RBC 3.50 L Hgb 10.3 L Hct 31.6 L MCV 90.3 MCH 29.5 MCHC 32.7 RDW 15.3 Plt Count 192 MPV 9.7 Neutrophils % 53.6 Lymphocytes % 34.5 Monocytes % 7.8 Eosinophils % 2.9 Basophils % 1.2 Sodium Potassium Chloride Carbon Dioxide Anion Gap BUN Creatinine Creat Clearance w eGFR POC Glucometer 193 123 Random Glucose Calcium Magnesium Total Bilirubin AST ALT Alkaline Phosphatase Total Protein Albumin Urine Color Urine Appearance Urine pH Ur Specific [place] Urine Protein Urine Glucose (UA) Urine Ketones Urine Blood Urine Nitrite Urine Bilirubin Urine Urobilinogen Ur Leukocyte Esterase Urine WBC (Auto) Urine RBC (Auto) Hyaline Casts RPR Titer 07/08/17 07/08/17 06:00 06:05 WBC RBC Hgb Hct MCV MCH MCHC RDW Plt Count MPV Neutrophils % Lymphocytes % Monocytes % Eosinophils % Basophils % Sodium 140 Potassium 5.6 H Chloride 110 H Carbon Dioxide 24 Anion Gap 6 L BUN 44 H Creatinine 3.7 H Creat Clearance w eGFR 17.02 POC Glucometer 106 Random Glucose 97 D Calcium 8.0 L Magnesium Total Bilirubin 0.4 D AST 43 H D ALT 48 D Alkaline Phosphatase 56 Total Protein 6.6 Albumin 3.4 Urine Color Urine Appearance Urine pH Ur Specific [place] Urine Protein Urine Glucose (UA) Urine Ketones Urine Blood Urine Nitrite Urine Bilirubin Urine Urobilinogen Ur Leukocyte Esterase Urine WBC (Auto) Urine RBC (Auto) Hyaline Casts RPR Titer HYPERKALEMIA 07/08/17 10:56 BIALTEAL ANKLE EDEMA NOTED. Assessment: 07/08/17 10:55 HYPERKALEMIA 2/2 JENNY 2/2 DM - SUGAR CONTROLLED WILL GIVE KAYEXALATE X1 DOSE WITH LASIX 20MG X1 DOSE, START hctz IN AM FOR BP CONTROL AND RECHECK K ON FRIDAY. pATEINT REFUSING DAILY BLOODWORK BUT IS IN AGREEMENT WITH PLAN, AWARE OFRISKS OF HIGH K.
[2017-07-08] MEDS ORDERED: SODIUM POLYSTYRENE SULFONATE 15 GM/60 ML BOTTLE PO ONE (11:15)
[2017-07-08] MEDS: THIAMINE HCL 100 MG TABLET (FP) PO SCH (21:07)
[2017-07-09] MEDS: hydrOXYzine PAMOATE 50 MG CAPSULE (FP) PO PRN (01:34)
[2017-07-09] MEDS: glipiZIDE-XL 10 MG TAB.ER.24 (FP) PO SCH (06:29)
[2017-07-09] MEDS: LEVOTHYROXINE NA 100 MCG TABLET (FP) PO SCH (06:29)
[2017-07-09] MEDS: INSULIN SLIDING SCALE (NOVOLOG) 1 VIAL SQ SCH ×4 (06:30→16:50)
[2017-07-09] MEDS ORDERED: INSULIN (NOVOLOG) ASPART 100 UNITS/ML 10ML VIAL ONE ×2 (07:03→12:06)
[2017-07-09] MEDS: LISINOPRIL 10 MG TABLET (FP) PO SCH (09:58)
[2017-07-09] MEDS: PRENATAL VITAMINS W/ FOLIC ACID TABLET (FP) PO SCH (09:58)
[2017-07-09] MEDS: ASPIRIN 81 MG CHEWABLE TABLETS PO SCH (09:58)
[2017-07-09] MEDS: TOLNAFTATE 1% CREAM 15 GM TUBE TP SCH ×2 (09:58→21:07)
[2017-07-09] MEDS: HYDROCHLOROTHIAZIDE 12.5 MG CAPSULE (FP) PO SCH (09:58)
[2017-07-09] MEDS: THIAMINE HCL 100 MG TABLET (FP) PO SCH (21:07)
[2017-07-10] MEDS: LEVOTHYROXINE NA 100 MCG TABLET (FP) PO SCH (06:23)
[2017-07-10] MEDS: glipiZIDE-XL 10 MG TAB.ER.24 (FP) PO SCH (06:23)
[2017-07-10] MEDS: INSULIN SLIDING SCALE (NOVOLOG) 1 VIAL SQ SCH ×3 (06:24→16:41)
[2017-07-10] MEDS: TOLNAFTATE 1% CREAM 15 GM TUBE TP SCH ×2 (09:58→21:05)
[2017-07-10] MEDS: LISINOPRIL 10 MG TABLET (FP) PO SCH (09:58)
[2017-07-10] MEDS: PRENATAL VITAMINS W/ FOLIC ACID TABLET (FP) PO SCH (09:58)
[2017-07-10] MEDS: HYDROCHLOROTHIAZIDE 12.5 MG CAPSULE (FP) PO SCH (09:58)
[2017-07-10] MEDS: ASPIRIN 81 MG CHEWABLE TABLETS PO SCH (09:58)
[2017-07-10] MEDS ORDERED: INSULIN (NOVOLOG) ASPART 100 UNITS/ML 10ML VIAL ONE ×2 (12:19→16:38)
[2017-07-10] MEDS: THIAMINE HCL 100 MG TABLET (FP) PO SCH (21:04)
[2017-07-11] MEDS: LEVOTHYROXINE NA 100 MCG TABLET (FP) PO SCH (06:05)
[2017-07-11] MEDS: INSULIN SLIDING SCALE (NOVOLOG) 1 VIAL SQ SCH ×3 (06:32→16:57)
[2017-07-11] MEDS: glipiZIDE-XL 10 MG TAB.ER.24 (FP) PO SCH (07:56)
[2017-07-11] MEDS: TOLNAFTATE 1% CREAM 15 GM TUBE TP SCH ×2 (10:01→21:09)
[2017-07-11] MEDS: HYDROCHLOROTHIAZIDE 12.5 MG CAPSULE (FP) PO SCH (10:02)
[2017-07-11] MEDS: PRENATAL VITAMINS W/ FOLIC ACID TABLET (FP) PO SCH (10:02)
[2017-07-11] MEDS: ASPIRIN 81 MG CHEWABLE TABLETS PO SCH (10:02)
[2017-07-11] MEDS: LISINOPRIL 10 MG TABLET (FP) PO SCH (10:02)
[2017-07-11] MEDS ORDERED: INSULIN (NOVOLOG) ASPART 100 UNITS/ML 10ML VIAL ONE ×2 (11:58→17:03)
[2017-07-11 15:23] LABS: ANION GAP 5 (8-16); BLOOD UREA NITROGEN 34 mg/dL (7-18); CALCIUM 8.1 mg/dL (8.5-10.1); CHLORIDE 105 mmol/L (98-107); CO2 28 mmol/L (21-32); CREATININE 3.3 mg/dL (0.7-1.3); GLUCOSE,RANDOM 153 mg/dL (74-106); POTASSIUM 5.4 mmol/L (3.5-5.1); SODIUM 138 mmol/L (136-145)
[2017-07-11] MEDS: THIAMINE HCL 100 MG TABLET (FP) PO SCH (21:08)
[2017-07-12] MEDS: LEVOTHYROXINE NA 100 MCG TABLET (FP) PO SCH (06:06)
[2017-07-12] MEDS: glipiZIDE-XL 10 MG TAB.ER.24 (FP) PO SCH (06:06)
[2017-07-12] MEDS ORDERED: INSULIN (NOVOLOG) ASPART 100 UNITS/ML 10ML VIAL ONE ×3 (07:30→16:39)
[2017-07-12] MEDS: INSULIN SLIDING SCALE (NOVOLOG) 1 VIAL SQ SCH ×3 (07:32→17:45)
[2017-07-12] MEDS: LISINOPRIL 10 MG TABLET (FP) PO SCH (09:37)
[2017-07-12] MEDS: TOLNAFTATE 1% CREAM 15 GM TUBE TP SCH ×2 (09:37→21:02)
[2017-07-12] MEDS: ASPIRIN 81 MG CHEWABLE TABLETS PO SCH (09:37)
[2017-07-12] MEDS: HYDROCHLOROTHIAZIDE 12.5 MG CAPSULE (FP) PO SCH (09:37)
[2017-07-12] MEDS: PRENATAL VITAMINS W/ FOLIC ACID TABLET (FP) PO SCH (09:37)
[2017-07-12] MEDS: THIAMINE HCL 100 MG TABLET (FP) PO SCH (21:01)
[2017-07-13] MEDS: glipiZIDE-XL 10 MG TAB.ER.24 (FP) PO SCH (06:19)
[2017-07-13] MEDS: LEVOTHYROXINE NA 100 MCG TABLET (FP) PO SCH (06:19)
[2017-07-13] MEDS: INSULIN SLIDING SCALE (NOVOLOG) 1 VIAL SQ SCH ×2 (07:28→12:11)
[2017-07-13] MEDS ORDERED: INSULIN (NOVOLOG) ASPART 100 UNITS/ML 10ML VIAL ONE (07:34)
[2017-07-13] MEDS: ASPIRIN 81 MG CHEWABLE TABLETS PO SCH (09:44)
[2017-07-13] MEDS: PRENATAL VITAMINS W/ FOLIC ACID TABLET (FP) PO SCH (09:44)
[2017-07-13] MEDS: TOLNAFTATE 1% CREAM 15 GM TUBE TP SCH ×2 (09:44→21:06)
[2017-07-13] MEDS: LISINOPRIL 10 MG TABLET (FP) PO SCH (09:44)
[2017-07-13] MEDS: HYDROCHLOROTHIAZIDE 12.5 MG CAPSULE (FP) PO SCH (09:44)
[2017-07-13] MEDS: THIAMINE HCL 100 MG TABLET (FP) PO SCH (21:05)
[2017-07-14] MEDS: glipiZIDE-XL 10 MG TAB.ER.24 (FP) PO SCH (06:08)
[2017-07-14] MEDS: LEVOTHYROXINE NA 100 MCG TABLET (FP) PO SCH (06:09)
[2017-07-14] MEDS: INSULIN SLIDING SCALE (NOVOLOG) 1 VIAL SQ SCH (06:58)
[2017-07-14] MEDS ORDERED: INSULIN (NOVOLOG) ASPART 100 UNITS/ML 10ML VIAL ONE (07:02)
[2017-07-14] MEDS: ASPIRIN 81 MG CHEWABLE TABLETS PO SCH (09:42)
[2017-07-14] MEDS: LISINOPRIL 10 MG TABLET (FP) PO SCH (09:42)
[2017-07-14] MEDS: HYDROCHLOROTHIAZIDE 12.5 MG CAPSULE (FP) PO SCH (09:42)
[2017-07-14] MEDS: TOLNAFTATE 1% CREAM 15 GM TUBE TP SCH ×2 (09:43→21:04)
[2017-07-14] MEDS: PRENATAL VITAMINS W/ FOLIC ACID TABLET (FP) PO SCH (09:43)
[2017-07-14] MEDS: THIAMINE HCL 100 MG TABLET (FP) PO SCH (21:04)
[2017-07-15] MEDS: LEVOTHYROXINE NA 100 MCG TABLET (FP) PO SCH (06:08)
[2017-07-15] MEDS: INSULIN SLIDING SCALE (NOVOLOG) 1 VIAL SQ SCH (06:09)
[2017-07-15] MEDS: glipiZIDE-XL 10 MG TAB.ER.24 (FP) PO SCH (06:09)
[2017-07-15 09:38] LABS: URINE APPEARANCE CLEAR; URINE BILIRUBIN NEGATIVE (NEGATIVE); URINE BLOOD NEGATIVE (NEGATIVE); URINE COLOR COLORLESS; URINE GLUCOSE (UA) NEGATIVE (NEGATIVE); URINE KETONE NEGATIVE (NEGATIVE); URINE LEUK ESTERASE NEGATIVE (NEGATIVE); URINE NITRITE NEGATIVE (NEGATIVE); URINE PROTEIN 2+ (NEGATIVE); URINE UROBILINOGEN NEGATIVE mg/dL (0.2-1.0)
[2017-07-15] MEDS: TOLNAFTATE 1% CREAM 15 GM TUBE TP SCH ×2 (09:41→21:12)
[2017-07-15] MEDS: HYDROCHLOROTHIAZIDE 12.5 MG CAPSULE (FP) PO SCH (09:41)
[2017-07-15] MEDS: LISINOPRIL 10 MG TABLET (FP) PO SCH (09:41)
[2017-07-15] MEDS: ASPIRIN 81 MG CHEWABLE TABLETS PO SCH (09:41)
[2017-07-15] MEDS: PRENATAL VITAMINS W/ FOLIC ACID TABLET (FP) PO SCH (09:41)
[2017-07-15] MEDS: THIAMINE HCL 100 MG TABLET (FP) PO SCH (21:12)
[2017-07-16] MEDS: hydrOXYzine PAMOATE 50 MG CAPSULE (FP) PO PRN ×2 (00:28→09:44)
[2017-07-16] MEDS: glipiZIDE-XL 10 MG TAB.ER.24 (FP) PO SCH (06:24)
[2017-07-16] MEDS: LEVOTHYROXINE NA 100 MCG TABLET (FP) PO SCH (06:24)
[2017-07-16] MEDS: INSULIN SLIDING SCALE (NOVOLOG) 1 VIAL SQ SCH (06:25)
[2017-07-16] MEDS ORDERED: INSULIN (NOVOLOG) ASPART 100 UNITS/ML 10ML VIAL ONE (06:45)
[2017-07-16 06:50] VITALS: TEMP 97.4
[2017-07-16] MEDS: ASPIRIN 81 MG CHEWABLE TABLETS PO SCH (09:42)
[2017-07-16] MEDS: TOLNAFTATE 1% CREAM 15 GM TUBE TP SCH (09:42)
[2017-07-16] MEDS: LISINOPRIL 10 MG TABLET (FP) PO SCH (09:42)
[2017-07-16] MEDS: PRENATAL VITAMINS W/ FOLIC ACID TABLET (FP) PO SCH (09:42)
[2017-07-16] MEDS: HYDROCHLOROTHIAZIDE 12.5 MG CAPSULE (FP) PO SCH (09:42)
[2017-07-16 14:15] VITALS: BP 143/88; PULSE 81
--- NOTE | 2017-07-16 15:25 | PN ---
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
== END 2017-07-16 15:45 | disposition home or self-care (01) | DRG 772 ==
LOC: YASAS 12:18 → Y5N 17:50
PROVIDERS: ADMIT Psychiatry & Neurology Psychiatry; ATTEND Psychiatry & Neurology Psychiatry
PROC: HZ42ZZZ Group Counseling for Substance Abuse Treatment, Cognitive-Behavioral (ICD-10-PCS; principal; 2017-06-27)
DX: F10.20 Alcohol dependence, uncomplicated (principal); F12.20 Cannabis dependence, uncomplicated; F17.210 Nicotine dependence, cigarettes, uncomplicated; Z63.4 Disappearance and death of family member; J45.909 Unspecified asthma, uncomplicated; E78.5 Hyperlipidemia, unspecified; E87.5 Hyperkalemia; E11.9 Type 2 diabetes mellitus without complications; E03.9 Hypothyroidism, unspecified; I10 Essential (primary) hypertension; R60.9 Edema, unspecified; B35.3 Tinea pedis; N17.9 Acute kidney failure, unspecified; R79.89 Other specified abnormal findings of blood chemistry; L84 Corns and callosities; Z79.4 Long term (current) use of insulin; E66.9 Obesity, unspecified; Z68.34 Body mass index [BMI] 34.0-34.9, adult
CPT/HCPCS: 36415; 80048; 80053; 81003; 81015; 82962; 83735; 85025; 85027; 86593; 93005; 93010

== ENCOUNTER 2019-02-24 16:37 | Inpatient (IN) | payer OTHER ==
[2019-02-24 18:00] VITALS: BMI 33.2
--- NOTE | 2019-02-24 19:11 | HP ---
"CIWA Score - Admission Criteria [facility]ASAS Guidelines: Admission for Medically Managed Detox: Requires at least one of the followin. CIWA greater than 12 2. Seizures within the past 24 hours 3. Delirium tremens within the past 24 hours 4. Hallucinations within the past 24 hours 5. Acute intervention needed for co occurring medical disorder 6. Acute intervention needed for co occurring psychiatric disorder 7. Severe withdrawal that cannot be handled at a lower level of care (continued vomiting, continued diarrhea, abnormal vital signs) requiring intravenous medication and/or fluids 8. Admitting History and Physical - Smoking History Smoking history: Current every day smoker Have you smoked in the past 12 months: Yes Aproximately how many cigarettes per day: 7 - Alcohol/Substance Use Hx Alcohol Use: Yes (1-2 times a week, 6 oz beer, 1/2 pint vodka) Admission [facility] Chief Complaint: 58 yo here for rehab from crack. Allergies/Adverse Reactions: Allergies Allergy/AdvReac Type Severity Reaction Status Date / Time shellfish derived Allergy Severe Swelling Verified 06/27/17 16:25 No Known Drug Allergies Allergy Verified 06/27/17 18:32 NKDA Allergy Uncoded 06/27/17 16:26 History of Present Illness: 58 yo w/ hx intermittent crack and alcohol use presents seeking rehab. Alcohol use since age 17. Current use is 1/2 pint 1-2 x/wk. Last used 3 days ago. Crack use since age 24. Last used 02/23/19. Nicotine use since age 17. Currently smokes 5 cig/day. Denies hx seizures, blackouts or overdoses. Hx: Frequent Falls. Last fell 1 week ago. PMHx: HTN, DM (States last used insulin 1 month ago); Thyroid disorder; Kidney Problems; High cholesterol.Asthma: EK06/2017: Abn MHHx: Depression. Denies thoughts of harming self or others. Does not see a MH Provider. SHx: Homeless. Unemployed ([employer]). Denies legal issues. Search Terms: Travis Cordova, 1960 Search Date: 02/24/2019 07:16:56 PM The Drug Utilization Report below displays all of the controlled substance prescriptions, if any, that your patient has filled in the last twelve months. The information displayed on this report is compiled from pharmacy submissions to the Department, and accurately reflects the information as submitted by the pharmacies. This report was requested by: Carrie Kumar | Reference #: [id number] There are no results for the search terms that you entered. Search Terms: Travis Cordova, 1960 Search Date: 02/24/2019 07:17:26 PM States Searched: [place], [place], [place], [place], [place], [place], [place] The Drug Utilization Report below displays the controlled substance prescriptions, if any, that were dispensed in the indicated state(s). The information displayed on this report is compiled from requests submitted to other states' PMPs, and accurately reflects the information as returned by them. Blank mnedez indicate data not provided by other state. This report was requested by: Carrie Kumar | Reference #: [id number] There are no results for the search terms that you entered. Exam Limitations: No Limitations - Ebola screening Have you traveled outside of the country in the last 21 days: No (N) Have you had contact with anyone from an Ebola affected area: No Do you have a fever: No - Review of Systems Constitutional: No Symptoms Reported EENT: reports: Blurred Vision, Dental Problems (Missing some teeth. Chews and swallows ok.) Respiratory: reports: SOB with Exertion (Climbing stairs.) Cardiac: reports: No Symptoms Reported GI: reports: No Symptoms Reported : reports: Other (Needs to force out urine.) Musculoskeletal: reports: No Symptoms Reported, Other (Uses a cane because sometimes legs give out.) Integumentary: reports: Lesions ( Bruise (R) lisa r/t rubbing from shoes.) Neuro: reports: No Symptoms reported Endocrine: reports: No Symptoms Reported Hematology: reports: Anemia (Low RBC's) Psychiatric: reports: Orientated x3, Depressed (Denies thoughts of harming self or others.) Patient History - Patient Medical History Hx Anemia: No Hx Asthma: Yes Hx Chronic Obstructive Pulmonary Disease (COPD): No Hx Cancer: No Hx Cardiac Disorders: No Hx Congestive Heart Failure: No Hx Hypertension: Yes Hx Hypercholesterolemia: Yes Hx Pacemaker: No HX Cerebrovascular Accident: No Hx Seizures: No Hx Dementia: No Hx Diabetes: Yes (IDDM) Hx Gastrointestinal Disorders: No Hx Liver Disease: No Hx Genitourinary Disorders: No Hx Sexually Transmitted Disorders: No Hx Renal Disease (ESRD): Yes (JENNY ) Hx Thyroid Disease: Yes (HYPOTHYROID ) Hx Human Immunodeficiency Virus (HIV): No Hx Hepatitis C: No Hx Depression: No Hx Suicide Attempt: No Hx Bipolar Disorder: No Hx Schizophrenia: No - Patient Surgical History Past Surgical History: Yes Hx Neurologic Surgery: No Hx Cataract Extraction: No Hx Cardiac Surgery: No Hx Lung Surgery: No Hx Breast Surgery: No Hx Breast Biopsy: No Hx Abdominal Surgery: Yes (umbilical hernia repair in 2010) Hx Appendectomy: No Hx Cholecystectomy: No Hx Genitourinary Surgery: No Hx Section: No Hx Orthopedic Surgery: No Anesthesia Reaction: No - PPD History Previous Implant?: Yes Documented Results: Negative w/proof Implanted On Prior [facility] Admission?: Yes Date: 06/29/17 PPD to be Administered?: Yes - Smoking Cessation Smoking history: Current every day smoker Have you smoked in the past 12 months: Yes Aproximately how many cigarettes per day: 5 Hx Chewing Tobacco Use: No Initiated information on smoking cessation: Yes 'Breaking Loose' booklet given: 02/24/19 - Substance & Tx. History Hx Alcohol Use: Yes Hx Substance Use: Yes Substance Use Type: Alcohol, Cocaine Hx Substance Use Treatment: Yes (detox, rehab) - Substances abused Alcohol Substance route: Oral Frequency: 1-2 times per week Amount used: 1/2 pint of vodka Age of first use: 17 Date of last use: 02/21/19 Cocaine Substance route: Smoking Frequency: 1-2 times per week Amount used: $400 Age of first use: 24 Date of last use: 02/23/19 Admission Physical Exam [facility] - Vital Signs Vital Signs: Vital Signs - 24 hr 02/24/19 17:52 Temperature 97.3 F L Pulse Rate 63 Respiratory 18 Rate Blood Pressure 150/91 - Physical General Appearance: Yes: Nourished, Obese HEENTM: Yes: EOMI (Jerking movement of eyes upon lateral gaze), Hearing grossly Normal, Normocephalic, Normal Voice, BIANCA, Pharynx Normal, Other (Chipped, cracked, and missing teeth. Poor dentition.) Respiratory: Yes: Lungs Clear (Pulse Ox = 98 %), Normal Breath Sounds, No Respiratory Distress Neck: Yes: Thyroid enlarged (Non-tender. Swallows well.) Breast: Yes: Breast Exam Deferred Cardiology: Yes: Regular Rhythm, S1, S2, Bradycardia (HR: 58) Abdominal: Yes: Normal Bowel Sounds, Non Tender, Soft, Protuberent (Increased abdominal adiposity) Genitourinary: Yes: Within Normal Limits Back: Yes: Normal Inspection Musculoskeletal: Yes: full range of Motion, Gait Steady (Has cane for support) Extremities: Yes: Normal Capillary Refill (Pulses +) Neurological: Yes: jig hand II-XII NML intact (Jerking movement of eyes upon lateral gaze), Fully Oriented, Alert, Motor Strength 5/5, Normal Response Integumentary: Yes: Normal Color, Dry, Warm, Other (Scab (R) lisa. No increased warmth or erythema.) Lymphatic: Yes: Within Normal Limits - Diagnostic (1) History of asthma Current Visit: Yes Status: Chronic (2) Nicotine dependence Current Visit: Yes Status: Chronic Qualifiers: Nicotine product type: cigarettes Substance use status: uncomplicated Qualified Code(s): F17.210 - Nicotine dependence, cigarettes, uncomplicated (3) Alcohol dependence, uncomplicated Current Visit: Yes Status: Chronic Comment: No use x 3 days (4) Cocaine dependence Current Visit: Yes Status: Chronic Qualifiers: Substance use status: uncomplicated Qualified Code(s): F14.20 - Cocaine dependence, uncomplicated (5) Hyperlipidemia Current Visit: Yes Status: Chronic Qualifiers: Hyperlipidemia type: unspecified Qualified Code(s): E78.5 - Hyperlipidemia , unspecified (6) Hypertension Current Visit: No Status: Chronic Qualifiers: Hypertension type: unspecified Qualified Code(s): I10 - Essential (primary ) hypertension (7) Hypothyroid Current Visit: Yes Status: Chronic Qualifiers: Hypothyroidism type: unspecified Qualified Code(s): E03.9 - Hypothyroidism , unspecified (8) Insulin dependent diabetes mellitus Current Visit: Yes Status: Chronic (9) Unspecified nystagmus Current Visit: Yes Status: Acute (10) Bradycardia Current Visit: Yes Status: Suspected (11) Obesity (BMI 30-39.9) Current Visit: Yes Status: Chronic Cleared for Admission [facility] - Detox or Rehab Claeared for Rehab Admission: Yes Breathalyzer - Breathalyzer Breathalyzer: 0 Urine Drug Screen - Test Device Lot number: [id number] Expiration date: 10/15/20 - Control Is test valid?: Yes - Results Drug screen NEGATIVE: No Urine drug screen results: MANUEL-Cocaine Inpatient Rehab Admission - Rehab Decision to Admit Inpatient rehab admission?: Yes - Initial Determination Are CD services needed?: Yes Free of communicable disease: Yes Not in need of hospitalization: Yes - Rehab Admission Criteria Previous failed treatment: Yes Poor recovery environment: Yes Comorbidities: Yes Lacks judgement: Yes Patient is meeting Inpatient Rehab admission criteria:: Yes"
[2019-02-24] MEDS ORDERED: MENTHOL/PHENOL 1 EACH UD MM PRN (19:42)
[2019-02-24] MEDS ORDERED: guaiFENesin 200 MG/10 ML 10 ML UNIT-DOSE CUPS PO PRN (19:42)
[2019-02-24] MEDS ORDERED: NICOTINE POLACRILEX 2 MG GUM BUC PRN (19:42)
[2019-02-24] MEDS ORDERED: IBUPROFEN 400 MG TABLET (FP) PO PRN (19:42)
[2019-02-24] MEDS ORDERED: LOPERAMIDE HCL 2 MG CAPSULE PO PRN (19:42)
[2019-02-24] MEDS ORDERED: P-EPHED 60MG/TRIPROLIDI 2.5MG TABLET PO PRN (19:42)
[2019-02-24] MEDS ORDERED: hydrOXYzine PAMOATE 25 MG CAPSULE (FP) PO PRN (19:42)
[2019-02-24] MEDS ORDERED: ALBUTEROL SO4 8 GM HFA INHALER IH PRN (19:45)
[2019-02-24] MEDS: MELATONIN 5 MG TABLETS PO PRN (21:15)
[2019-02-24] MEDS: THIAMINE HCL 100 MG TABLET (FP) PO SCH (21:15)
[2019-02-24] MEDS ORDERED: COLLOIDAL OATMEAL 1 BAR EACH TP PRN (21:23)
[2019-02-25] MEDS: LEVOTHYROXINE NA 100 MCG TABLET (FP) PO SCH (07:31)
[2019-02-25] MEDS: glipiZIDE-XL 10 MG TAB.ER.24 (FP) PO SCH (07:31)
[2019-02-25] MEDS: PRENATAL VITAMINS W/ FOLIC ACID TABLET (FP) PO SCH (09:56)
[2019-02-25] MEDS: HYDROCHLOROTHIAZIDE 12.5 MG CAPSULE (FP) PO SCH (09:56)
[2019-02-25] MEDS: LISINOPRIL 10 MG TABLET (FP) PO SCH (09:57)
[2019-02-25] MEDS: NICOTINE 7 MG/24 HOURS TOPICAL PATCH TD SCH (09:57)
[2019-02-25] MEDS: ASPIRIN 81 MG CHEWABLE TABLETS PO SCH (09:57)
[2019-02-25] MEDS ORDERED: FLU VACCINE QUAD 60 MCG/0.5 ML (MDV 19-20) IM ONE (10:52)
[2019-02-25 12:20] LABS: HEMATOCRIT 26.3 % (35.4-49); HEMOGLOBIN 8.9 GM/dL (11.7-16.9); MCHC 33.8 g/dl (32.0-35.9); MEAN CELL VOLUME 88.8 fl (80-96); MEAN PLT VOLUME 9.9 fl (7.5-11.1); PLATELET COUNT 159 K/MM3 (134-434); RBC 2.96 M/mm3 (4.00-5.60); RDW 16.8 % (11.9-15.9); WHITE BLOOD COUNT 2.6 K/mm3 (4.0-10.0)
--- NOTE | 2019-02-25 12:21 | EKG ---
Test Reason : Blood Pressure : / mmHG Vent. Rate : 047 BPM Atrial Rate : 047 BPM P-R Int : 212 ms QRS Dur : 116 ms QT Int : 462 ms P-R-T Axes : 054 074 097 degrees QTc Int : 408 ms SINUS BRADYCARDIA WITH SINUS ARRHYTHMIA WITH 1ST DEGREE A-V BLOCK SEPTAL INFARCT , AGE UNDETERMINED ABNORMAL ECG WHEN COMPARED WITH ECG OF 30-JUN-2017 22:08, SEPTAL INFARCT IS NOW PRESENT NONSPECIFIC T WAVE ABNORMALITY, IMPROVED IN LATERAL LEADS Confirmed by NORY SEPULVEDA MD ([id number]) on 02/25/2019 12:21:43 PM Referred By: Confirmed By:NORY SEPULVEDA MD
[2019-02-25 12:36] LABS: ALBUMIN 3.7 g/dl (3.4-5.0); ALK PHOS 48 U/L (45-117); ANION GAP 6 MMOL/L (8-16); BILIRUBIN,TOTAL 0.8 mg/dL (0.2-1); CALCIUM 8.8 mg/dL (8.5-10.1); CHLORIDE 104 mmol/L (98-107); CO2 26 mmol/L (21-32); CREATININE 5.1 mg/dL (0.55-1.3); GLUCOSE,RANDOM 168 mg/dL (74-106); POTASSIUM 5.4 mmol/L (3.5-5.1); SGOT/AST 49 U/L (15-37); SGPT/ALT 42 U/L (13-61); SODIUM 137 mmol/L (136-145)
--- NOTE | 2019-02-25 15:54 | PN ---
[facility] Progress Note Note: Pt admitted yesterday to rehab. No acute distress or complaints. oob to groups as needed. Denies CP,dizziness,n/v/d,or sob. lab results Review: Admission EKG(02/24/19): sinus Bradycardia with sinus arrythmia with 1st degree A -V Block Septal Infarct, age undetermined vent. rate = 47 Abnl ECG When compared with ECG of , septal infarct is now present Nonspecific wave abnormality, improved in lateral leads Laboratory Tests 02/25/19 02/25/19 02/25/19 07:30 08:35 08:35 WBC 2.6 L RBC 2.96 L Hgb 8.9 L Hct 26.3 L D MCV 88.8 MCH 30.0 MCHC 33.8 RDW 16.8 H Plt Count 159 MPV 9.9 Sodium 137 Potassium 5.4 H Chloride 104 Carbon Dioxide 26 Anion Gap 6 L BUN 48.0 H Creatinine 5.1 H Est GFR (CKD-EPI)AfAm 13.26 Est GFR (CKD-EPI)NonAf 11.44 POC Glucometer 132 Random Glucose 168 H Calcium 8.8 Total Bilirubin 0.8 AST 49 H ALT 42 Alkaline Phosphatase 48 Total Protein 7.0 Albumin 3.7 Vital Signs - 24 hr 02/24/19 02/24/19 02/25/19 17:52 20:33 01:02 Temperature 97.3 F L 98.0 F Pulse Rate 63 54 L Respiratory 18 18 18 Rate Blood Pressure 150/91 166/77 02/25/19 02/25/19 02/25/19 03:30 05:52 10:00 Temperature 97.6 F Pulse Rate 67 63 Respiratory 18 20 Rate Blood Pressure 139/95 138/65 pulse Oximetry = 95% room air Pt is alert o x 3 nad oob ambulating with steady gait to groups and back no sob cardiac;s1 s2, bradycardia lungs:cta,rama. Abdomen;protruded,+bs,nt Extremities/Skin:No edema,skin dry and ashy,full ROM. A/P Abnl labs Multiple comorbid conditions Anemia Kidney disease Hyperkalemia Asymptomatic feosol 325 mg po tid dietary consult in the morning Encourage fluids as tolerated Repeat cmp and cbc in the morning monitor safety per protocol
[2019-02-25] MEDS: FERROUS SO4 325 MG TABLET (FP) PO SCH (17:46)
[2019-02-25] MEDS: THIAMINE HCL 100 MG TABLET (FP) PO SCH (21:48)
[2019-02-26] MEDS: FERROUS SO4 325 MG TABLET (FP) PO SCH ×3 (07:37→17:01)
[2019-02-26] MEDS: glipiZIDE-XL 10 MG TAB.ER.24 (FP) PO SCH (07:37)
[2019-02-26] MEDS: LEVOTHYROXINE NA 100 MCG TABLET (FP) PO SCH (07:38)
[2019-02-26] MEDS: NICOTINE 7 MG/24 HOURS TOPICAL PATCH TD SCH (10:08)
[2019-02-26] MEDS: LISINOPRIL 10 MG TABLET (FP) PO SCH (10:08)
[2019-02-26] MEDS: ASPIRIN 81 MG CHEWABLE TABLETS PO SCH (10:08)
[2019-02-26] MEDS: PRENATAL VITAMINS W/ FOLIC ACID TABLET (FP) PO SCH (10:08)
[2019-02-26] MEDS: HYDROCHLOROTHIAZIDE 12.5 MG CAPSULE (FP) PO SCH (10:08)
[2019-02-26 12:48] LABS: HEMATOCRIT 29.3 % (35.4-49); HEMOGLOBIN 9.7 GM/dL (11.7-16.9); MCH 29.5 pg (25.7-33.7); MCHC 33.1 g/dl (32.0-35.9); MEAN CELL VOLUME 89.1 fl (80-96); MEAN PLT VOLUME 8.6 fl (7.5-11.1); PLATELET COUNT 165 K/MM3 (134-434); RBC 3.28 M/mm3 (4.00-5.60); RDW 16.9 % (11.9-15.9); WHITE BLOOD COUNT 2.7 K/mm3 (4.0-10.0)
[2019-02-26 12:50] LABS: ALBUMIN 3.9 g/dl (3.4-5.0); BILIRUBIN,TOTAL 0.2 mg/dL (0.2-1); BLOOD UREA NITROGEN 42.9 mg/dL (7-18); CALCIUM 9.3 mg/dL (8.5-10.1); CREATININE 4.5 mg/dL (0.55-1.3); POTASSIUM 5.3 mmol/L (3.5-5.1); TOT PROT 7.3 g/dl (6.4-8.2)
[2019-02-26 13:01] LABS: EPI CELLS 2.7 /HPF (0-5/HPF); HYALINE CASTS 2 /lpf (0-8); PH,URINE 5.5 (5.0-8.0); URINE APPEARANCE CLEAR; URINE BACTERIA 6.2 /hpf (NEGATIVE); URINE BILIRUBIN NEGATIVE (NEGATIVE); URINE COLOR YELLOW; URINE GLUCOSE (UA) NEGATIVE (NEGATIVE); URINE KETONE NEGATIVE (NEGATIVE); URINE LEUK ESTERASE NEGATIVE (NEGATIVE); URINE NITRITE NEGATIVE (NEGATIVE); URINE PROTEIN 1+ (NEGATIVE); URINE UROBILINOGEN 0.2 mg/dL (0.2-1.0)
[2019-02-26 13:10] LABS: URINE RBC 5.5 /hpf (0-4); YEAST TRACE (NEGATIVE)
[2019-02-26 13:11] LABS: URINE WBC 5 /hpf (0-5)
--- NOTE | 2019-02-26 15:16 | PN ---
[facility] Progress Note Note: Repeat labs:Pt will admission elevated lab results which were repeated-BUN,Cr, H /H,and K+ levels. Pt reports he has no PCP and appears to be a poor historian not indicating if he has chronic kidney disease status and for how long. Pt has a hx of alcohol and cocaine dependence, Hx of Asthma,HTN,HLD,DM,?JENNY(from 2018 admission H/P),hypothyroidism and chronic Bradycardia. Vital Signs - 24 hr 02/26/19 02/26/19 02/26/19 00:30 03:30 06:49 Temperature 98.1 F Pulse Rate 80 Respiratory 18 18 18 Rate Blood Pressure 126/76 02/26/19 10:00 Temperature Pulse Rate 69 Respiratory Rate Blood Pressure 112/56 L Laboratory Tests 02/25/19 02/25/19 02/25/19 07:30 08:35 08:35 WBC 2.6 L RBC 2.96 L Hgb 8.9 L Hct 26.3 L D MCV 88.8 MCH 30.0 MCHC 33.8 RDW 16.8 H Plt Count 159 MPV 9.9 Sodium 137 Potassium 5.4 H Chloride 104 Carbon Dioxide 26 Anion Gap 6 L BUN 48.0 H Creatinine 5.1 H Est GFR (CKD-EPI)AfAm 13.26 Est GFR (CKD-EPI)NonAf 11.44 POC Glucometer 132 Random Glucose 168 H Calcium 8.8 Total Bilirubin 0.8 AST 49 H ALT 42 Alkaline Phosphatase 48 Total Protein 7.0 Albumin 3.7 Urine Color Urine Appearance Urine pH Ur Specific [place] Urine Protein Urine Glucose (UA) Urine Ketones Urine Blood Urine Nitrite Urine Bilirubin Urine Urobilinogen Ur Leukocyte Esterase Urine WBC (Auto) Urine RBC (Auto) Urine Casts (Auto) U Epithel Cells (Auto) Urine Bacteria (Auto) Urine Yeast (Auto) RPR Titer HIV 1&2 Antibody Screen HIV P24 Antigen 02/25/19 02/25/19 02/25/19 08:35 08:35 16:30 WBC RBC Hgb Hct MCV MCH MCHC RDW Plt Count MPV Sodium Potassium Chloride Carbon Dioxide Anion Gap BUN Creatinine Est GFR (CKD-EPI)AfAm Est GFR (CKD-EPI)NonAf POC Glucometer 71 Random Glucose Calcium Total Bilirubin AST ALT Alkaline Phosphatase Total Protein Albumin Urine Color Urine Appearance Urine pH Ur Specific [place] Urine Protein Urine Glucose (UA) Urine Ketones Urine Blood Urine Nitrite Urine Bilirubin Urine Urobilinogen Ur Leukocyte Esterase Urine WBC (Auto) Urine RBC (Auto) Urine Casts (Auto) U Epithel Cells (Auto) Urine Bacteria (Auto) Urine Yeast (Auto) RPR Titer Nonreactive HIV 1&2 Antibody Screen Negative HIV P24 Antigen Negative 02/26/19 02/26/19 02/26/19 06:03 08:00 08:00 WBC 2.7 L RBC 3.28 L Hgb 9.7 L Hct 29.3 L MCV 89.1 MCH 29.5 MCHC 33.1 RDW 16.9 H Plt Count 165 MPV 8.6 D Sodium 137 Potassium 5.3 H Chloride 106 Carbon Dioxide 26 Anion Gap 6 L BUN 42.9 H Creatinine 4.5 H Est GFR (CKD-EPI)AfAm 15.43 Est GFR (CKD-EPI)NonAf 13.31 POC Glucometer 65 Random Glucose 115 H Calcium 9.3 Total Bilirubin 0.2 AST 42 H ALT 37 Alkaline Phosphatase 51 Total Protein 7.3 Albumin 3.9 Urine Color Urine Appearance Urine pH Ur Specific [place] Urine Protein Urine Glucose (UA) Urine Ketones Urine Blood Urine Nitrite Urine Bilirubin Urine Urobilinogen Ur Leukocyte Esterase Urine WBC (Auto) Urine RBC (Auto) Urine Casts (Auto) U Epithel Cells (Auto) Urine Bacteria (Auto) Urine Yeast (Auto) RPR Titer HIV 1&2 Antibody Screen HIV P24 Antigen 02/26/19 08:40 WBC RBC Hgb Hct MCV MCH MCHC RDW Plt Count MPV Sodium Potassium Chloride Carbon Dioxide Anion Gap BUN Creatinine Est GFR (CKD-EPI)AfAm Est GFR (CKD-EPI)NonAf POC Glucometer Random Glucose Calcium Total Bilirubin AST ALT Alkaline Phosphatase Total Protein Albumin Urine Color Yellow Urine Appearance Clear Urine pH 5.5 D Ur Specific [place] 1.012 Urine Protein 1+ H Urine Glucose (UA) Negative Urine Ketones Negative Urine Blood Trace Urine Nitrite Negative Urine Bilirubin Negative Urine Urobilinogen 0.2 Ur Leukocyte Esterase Negative Urine WBC (Auto) 5 Urine RBC (Auto) 5.5 Urine Casts (Auto) 2 U Epithel Cells (Auto) 2.7 Urine Bacteria (Auto) 6.2 Urine Yeast (Auto) Trace RPR Titer HIV 1&2 Antibody Screen HIV P24 Antigen Pulse ox:94% room air no sob HR=74 Lab results grossly improved. H/H, K+,BUN,Cr with downward levels. Pt continues to be oob and attending groups, pleasant with some sense of humor, offering no complaints at this time. Alert o x 3 MDM: D/w Dr. Baez at the [facility] ER, will continue to monitor patient's status and repeat labs on 02/27/19. Pt appears medically stable at this time and participating in activities and oob with no distress. Repeated labs improved from previous days from admission. Encourage po fluids as tolerated. Pt may be transferred to [facility] ER if status changes and/or lab results not getting better.
[2019-02-26] MEDS: MELATONIN 5 MG TABLETS PO PRN (21:13)
[2019-02-26] MEDS: THIAMINE HCL 100 MG TABLET (FP) PO SCH (21:13)
[2019-02-27] MEDS: glipiZIDE-XL 10 MG TAB.ER.24 (FP) PO SCH (07:06)
[2019-02-27] MEDS: FERROUS SO4 325 MG TABLET (FP) PO SCH ×3 (07:48→17:57)
[2019-02-27] MEDS: LEVOTHYROXINE NA 100 MCG TABLET (FP) PO SCH (07:48)
[2019-02-27] MEDS: HYDROCHLOROTHIAZIDE 12.5 MG CAPSULE (FP) PO SCH (10:35)
[2019-02-27] MEDS: ASPIRIN 81 MG CHEWABLE TABLETS PO SCH (10:35)
[2019-02-27] MEDS: PRENATAL VITAMINS W/ FOLIC ACID TABLET (FP) PO SCH (10:36)
[2019-02-27] MEDS: LISINOPRIL 10 MG TABLET (FP) PO SCH (10:36)
[2019-02-27] MEDS: NICOTINE 7 MG/24 HOURS TOPICAL PATCH TD SCH (10:37)
[2019-02-27] MEDS: ACETAMINOPHEN 325 MG TABLET (FP) PO PRN (13:09)
--- NOTE | 2019-02-27 14:28 | PN ---
[facility] Progress Note Note: Patient is referred for blood glucose 49mg/dl. After consuming juice w/ sugar and jello, level increased to 53mg/dl. He is examined in bed, no apparent distress, he reports feeling weak. He denies any other symptoms. PE Neuro: A&O x3, no focal deficits Chest: Lungs clear in all mendez CVS: S1S2, RRR ABD: BS X4, soft, NT, ND Patient is a 58 y/o man who has been having episodes of low blood glucose levels , he is currently on glucotrol 10mg once daily A/P- Hypoglycemic episode- Decrease glucotrol to 5mg daily Monitor blood glucose levels as ordered: ACHS and as needed Ongoing monitoring
[2019-02-27] MEDS: THIAMINE HCL 100 MG TABLET (FP) PO SCH (21:35)
[2019-02-27] MEDS: MELATONIN 5 MG TABLETS PO PRN (21:36)
[2019-02-28] MEDS: LEVOTHYROXINE NA 100 MCG TABLET (FP) PO SCH (06:59)
[2019-02-28] MEDS: glipiZIDE-XL 5 MG TAB.ER.24 PO SCH (06:59)
[2019-02-28] MEDS: FERROUS SO4 325 MG TABLET (FP) PO SCH ×3 (06:59→16:46)
[2019-02-28] MEDS: PRENATAL VITAMINS W/ FOLIC ACID TABLET (FP) PO SCH (09:47)
[2019-02-28] MEDS: HYDROCHLOROTHIAZIDE 12.5 MG CAPSULE (FP) PO SCH (09:47)
[2019-02-28] MEDS: ACETAMINOPHEN 325 MG TABLET (FP) PO PRN (09:47)
[2019-02-28] MEDS: LISINOPRIL 10 MG TABLET (FP) PO SCH (09:48)
[2019-02-28] MEDS: NICOTINE 7 MG/24 HOURS TOPICAL PATCH TD SCH (09:48)
[2019-02-28] MEDS: ASPIRIN 81 MG CHEWABLE TABLETS PO SCH (09:48)
[2019-02-28] MEDS: THIAMINE HCL 100 MG TABLET (FP) PO SCH (21:23)
[2019-02-28] MEDS: MELATONIN 5 MG TABLETS PO PRN (21:23)
[2019-03-01] MEDS: LEVOTHYROXINE NA 100 MCG TABLET (FP) PO SCH (07:44)
[2019-03-01] MEDS: FERROUS SO4 325 MG TABLET (FP) PO SCH ×3 (07:44→18:11)
[2019-03-01] MEDS: glipiZIDE-XL 5 MG TAB.ER.24 PO SCH (07:44)
[2019-03-01] MEDS: LISINOPRIL 10 MG TABLET (FP) PO SCH (10:25)
[2019-03-01] MEDS: PRENATAL VITAMINS W/ FOLIC ACID TABLET (FP) PO SCH (10:25)
[2019-03-01] MEDS: HYDROCHLOROTHIAZIDE 12.5 MG CAPSULE (FP) PO SCH (10:25)
[2019-03-01] MEDS: ASPIRIN 81 MG CHEWABLE TABLETS PO SCH (10:25)
[2019-03-01] MEDS: NICOTINE 7 MG/24 HOURS TOPICAL PATCH TD SCH (10:25)
[2019-03-01] MEDS: THIAMINE HCL 100 MG TABLET (FP) PO SCH (21:26)
[2019-03-02] MEDS: LEVOTHYROXINE NA 100 MCG TABLET (FP) PO SCH (06:19)
[2019-03-02] MEDS: glipiZIDE-XL 5 MG TAB.ER.24 PO SCH (06:19)
[2019-03-02] MEDS: FERROUS SO4 325 MG TABLET (FP) PO SCH ×3 (08:22→17:06)
[2019-03-02] MEDS: LISINOPRIL 10 MG TABLET (FP) PO SCH (10:01)
[2019-03-02] MEDS: HYDROCHLOROTHIAZIDE 12.5 MG CAPSULE (FP) PO SCH (10:01)
[2019-03-02] MEDS: ASPIRIN 81 MG CHEWABLE TABLETS PO SCH (10:02)
[2019-03-02] MEDS: NICOTINE 7 MG/24 HOURS TOPICAL PATCH TD SCH (10:02)
[2019-03-02] MEDS: PRENATAL VITAMINS W/ FOLIC ACID TABLET (FP) PO SCH (10:02)
[2019-03-02] MEDS: THIAMINE HCL 100 MG TABLET (FP) PO SCH (21:52)
[2019-03-03] MEDS: glipiZIDE-XL 5 MG TAB.ER.24 PO SCH (06:51)
[2019-03-03] MEDS: LEVOTHYROXINE NA 100 MCG TABLET (FP) PO SCH (06:51)
[2019-03-03] MEDS: FERROUS SO4 325 MG TABLET (FP) PO SCH ×3 (07:01→16:58)
[2019-03-03] MEDS: ASPIRIN 81 MG CHEWABLE TABLETS PO SCH (10:14)
[2019-03-03] MEDS: LISINOPRIL 10 MG TABLET (FP) PO SCH (10:14)
[2019-03-03] MEDS: HYDROCHLOROTHIAZIDE 12.5 MG CAPSULE (FP) PO SCH (10:15)
[2019-03-03] MEDS: PRENATAL VITAMINS W/ FOLIC ACID TABLET (FP) PO SCH (10:15)
[2019-03-03] MEDS: NICOTINE 7 MG/24 HOURS TOPICAL PATCH TD SCH (10:15)
[2019-03-03] MEDS: THIAMINE HCL 100 MG TABLET (FP) PO SCH (22:00)
[2019-03-04] MEDS: glipiZIDE-XL 5 MG TAB.ER.24 PO SCH (06:21)
[2019-03-04] MEDS: LEVOTHYROXINE NA 100 MCG TABLET (FP) PO SCH (06:21)
[2019-03-04 06:47] VITALS: TEMP 97.9
[2019-03-04] MEDS: FERROUS SO4 325 MG TABLET (FP) PO SCH ×3 (07:55→16:29)
[2019-03-04] MEDS: PRENATAL VITAMINS W/ FOLIC ACID TABLET (FP) PO SCH (09:59)
[2019-03-04] MEDS: NICOTINE 7 MG/24 HOURS TOPICAL PATCH TD SCH (09:59)
[2019-03-04] MEDS: LISINOPRIL 10 MG TABLET (FP) PO SCH (10:00)
[2019-03-04] MEDS: HYDROCHLOROTHIAZIDE 12.5 MG CAPSULE (FP) PO SCH (10:00)
[2019-03-04] MEDS: ASPIRIN 81 MG CHEWABLE TABLETS PO SCH (10:00)
[2019-03-04] MEDS: THIAMINE HCL 100 MG TABLET (FP) PO SCH (21:45)
[2019-03-05 06:51] VITALS: BP 133/77; PULSE 60
[2019-03-05] MEDS: LEVOTHYROXINE NA 100 MCG TABLET (FP) PO SCH (07:05)
[2019-03-05] MEDS: glipiZIDE-XL 5 MG TAB.ER.24 PO SCH (07:05)
[2019-03-05] MEDS: FERROUS SO4 325 MG TABLET (FP) PO SCH ×2 (07:06→13:03)
[2019-03-05] MEDS: LISINOPRIL 10 MG TABLET (FP) PO SCH (09:37)
[2019-03-05] MEDS: HYDROCHLOROTHIAZIDE 12.5 MG CAPSULE (FP) PO SCH (09:37)
[2019-03-05] MEDS: PRENATAL VITAMINS W/ FOLIC ACID TABLET (FP) PO SCH (09:37)
[2019-03-05] MEDS: NICOTINE 7 MG/24 HOURS TOPICAL PATCH TD SCH (09:38)
[2019-03-05] MEDS: ASPIRIN 81 MG CHEWABLE TABLETS PO SCH (09:38)
--- NOTE | 2019-03-05 10:49 | PN ---
[facility] Progress Note (SOAP) Subjective: Pt is a 58 y/o male who was admitted to rehab on 02/24/19 and requesting today to leave treatment. second time to this facility,first was in 06/2017. Pt is a poor historian and has been telling staff "I'm going to [place]". Pt does not currently have a ticket to [place]. Pt was unable to tell comic writer where to send his Rx if discharged, stating "I'll let you know when I get to [place]". Pt has abnormal lab results and has refused twice repeatedly for repeat labs monitoring of his abnormal resullts due to chronic health conditions. Pt was informed will order another repeat today and encouraged to do blood work. PMHx: HTN, DM (States last used insulin 1 month ago); Thyroid disorder; Kidney Problems; High cholesterol and Asthma. Pt on medications for these comorbid conditions but reports no current primary care connection. Unable to determine who prescribes his meds. This comic writer called the pharmacy listed in this system on admission and received recording "Not in service". Pt not giving staff any other pharmacy used outside here. MHHx: Depression. Denies thoughts of harming self or others. Does not see a MH Provider and not taking any psychotropic medication. SHx: Homeless. Unemployed (SSI). Denies legal issues. Pt reports he stays at [address] [place] [address] in [place], [place] and has reports "they give me my medicine there". But pt does not admit he has primary medical provider. Objective: 03/05/19 11:02 Vital Signs - 24 hr 03/05/19 06:50 Pulse Rate 60 Respiratory 18 Rate Blood Pressure 133/77 Laboratory Tests 02/25/19 02/25/19 02/25/19 07:30 08:35 08:35 WBC 2.6 L RBC 2.96 L Hgb 8.9 L Hct 26.3 L D MCV 88.8 MCH 30.0 MCHC 33.8 RDW 16.8 H Plt Count 159 MPV 9.9 Sodium 137 Potassium 5.4 H Chloride 104 Carbon Dioxide 26 Anion Gap 6 L BUN 48.0 H Creatinine 5.1 H Est GFR (CKD-EPI)AfAm 13.26 Est GFR (CKD-EPI)NonAf 11.44 POC Glucometer 132 Random Glucose 168 H Calcium 8.8 Total Bilirubin 0.8 AST 49 H ALT 42 Alkaline Phosphatase 48 Total Protein 7.0 Albumin 3.7 Urine Color Urine Appearance Urine pH Ur Specific [place] Urine Protein Urine Glucose (UA) Urine Ketones Urine Blood Urine Nitrite Urine Bilirubin Urine Urobilinogen Ur Leukocyte Esterase Urine WBC (Auto) Urine RBC (Auto) Urine Casts (Auto) U Epithel Cells (Auto) Urine Bacteria (Auto) Urine Yeast (Auto) RPR Titer HIV 1&2 Antibody Screen HIV P24 Antigen 02/25/19 02/25/19 02/25/19 08:35 08:35 16:30 WBC RBC Hgb Hct MCV MCH MCHC RDW Plt Count MPV Sodium Potassium Chloride Carbon Dioxide Anion Gap BUN Creatinine Est GFR (CKD-EPI)AfAm Est GFR (CKD-EPI)NonAf POC Glucometer 71 Random Glucose Calcium Total Bilirubin AST ALT Alkaline Phosphatase Total Protein Albumin Urine Color Urine Appearance Urine pH Ur Specific [place] Urine Protein Urine Glucose (UA) Urine Ketones Urine Blood Urine Nitrite Urine Bilirubin Urine Urobilinogen Ur Leukocyte Esterase Urine WBC (Auto) Urine RBC (Auto) Urine Casts (Auto) U Epithel Cells (Auto) Urine Bacteria (Auto) Urine Yeast (Auto) RPR Titer Nonreactive HIV 1&2 Antibody Screen Negative HIV P24 Antigen Negative 02/26/19 02/26/19 02/26/19 06:03 08:00 08:00 WBC 2.7 L RBC 3.28 L Hgb 9.7 L Hct 29.3 L MCV 89.1 MCH 29.5 MCHC 33.1 RDW 16.9 H Plt Count 165 MPV 8.6 D Sodium 137 Potassium 5.3 H Chloride 106 Carbon Dioxide 26 Anion Gap 6 L BUN 42.9 H Creatinine 4.5 H Est GFR (CKD-EPI)AfAm 15.43 Est GFR (CKD-EPI)NonAf 13.31 POC Glucometer 65 Random Glucose 115 H Calcium 9.3 Total Bilirubin 0.2 AST 42 H ALT 37 Alkaline Phosphatase 51 Total Protein 7.3 Albumin 3.9 Urine Color Urine Appearance Urine pH Ur Specific [place] Urine Protein Urine Glucose (UA) Urine Ketones Urine Blood Urine Nitrite Urine Bilirubin Urine Urobilinogen Ur Leukocyte Esterase Urine WBC (Auto) Urine RBC (Auto) Urine Casts (Auto) U Epithel Cells (Auto) Urine Bacteria (Auto) Urine Yeast (Auto) RPR Titer HIV 1&2 Antibody Screen HIV P24 Antigen 02/26/19 02/26/19 02/27/19 08:40 17:01 06:01 WBC RBC Hgb Hct MCV MCH MCHC RDW Plt Count MPV Sodium Potassium Chloride Carbon Dioxide Anion Gap BUN Creatinine Est GFR (CKD-EPI)AfAm Est GFR (CKD-EPI)NonAf POC Glucometer 69 46 Random Glucose Calcium Total Bilirubin AST ALT Alkaline Phosphatase Total Protein Albumin Urine Color Yellow Urine Appearance Clear Urine pH 5.5 D Ur Specific [place] 1.012 Urine Protein 1+ H Urine Glucose (UA) Negative Urine Ketones Negative Urine Blood Trace Urine Nitrite Negative Urine Bilirubin Negative Urine Urobilinogen 0.2 Ur Leukocyte Esterase Negative Urine WBC (Auto) 5 Urine RBC (Auto) 5.5 Urine Casts (Auto) 2 U Epithel Cells (Auto) 2.7 Urine Bacteria (Auto) 6.2 Urine Yeast (Auto) Trace RPR Titer HIV 1&2 Antibody Screen HIV P24 Antigen 02/27/19 02/27/19 02/27/19 06:45 14:03 14:15 WBC RBC Hgb Hct MCV MCH MCHC RDW Plt Count MPV Sodium Potassium Chloride Carbon Dioxide Anion Gap BUN Creatinine Est GFR (CKD-EPI)AfAm Est GFR (CKD-EPI)NonAf POC Glucometer 85 49 53 Random Glucose Calcium Total Bilirubin AST ALT Alkaline Phosphatase Total Protein Albumin Urine Color Urine Appearance Urine pH Ur Specific [place] Urine Protein Urine Glucose (UA) Urine Ketones Urine Blood Urine Nitrite Urine Bilirubin Urine Urobilinogen Ur Leukocyte Esterase Urine WBC (Auto) Urine RBC (Auto) Urine Casts (Auto) U Epithel Cells (Auto) Urine Bacteria (Auto) Urine Yeast (Auto) RPR Titer HIV 1&2 Antibody Screen HIV P24 Antigen 02/27/19 02/27/19 02/28/19 15:15 16:35 06:22 WBC RBC Hgb Hct MCV MCH MCHC RDW Plt Count MPV Sodium Potassium Chloride Carbon Dioxide Anion Gap BUN Creatinine Est GFR (CKD-EPI)AfAm Est GFR (CKD-EPI)NonAf POC Glucometer 62 82 58 Random Glucose Calcium Total Bilirubin AST ALT Alkaline Phosphatase Total Protein Albumin Urine Color Urine Appearance Urine pH Ur Specific [place] Urine Protein Urine Glucose (UA) Urine Ketones Urine Blood Urine Nitrite Urine Bilirubin Urine Urobilinogen Ur Leukocyte Esterase Urine WBC (Auto) Urine RBC (Auto) Urine Casts (Auto) U Epithel Cells (Auto) Urine Bacteria (Auto) Urine Yeast (Auto) RPR Titer HIV 1&2 Antibody Screen HIV P24 Antigen 02/28/19 03/01/19 03/01/19 16:35 06:15 16:50 WBC RBC Hgb Hct MCV MCH MCHC RDW Plt Count MPV Sodium Potassium Chloride Carbon Dioxide Anion Gap BUN Creatinine Est GFR (CKD-EPI)AfAm Est GFR (CKD-EPI)NonAf POC Glucometer 115 109 149 Random Glucose Calcium Total Bilirubin AST ALT Alkaline Phosphatase Total Protein Albumin Urine Color Urine Appearance Urine pH Ur Specific [place] Urine Protein Urine Glucose (UA) Urine Ketones Urine Blood Urine Nitrite Urine Bilirubin Urine Urobilinogen Ur Leukocyte Esterase Urine WBC (Auto) Urine RBC (Auto) Urine Casts (Auto) U Epithel Cells (Auto) Urine Bacteria (Auto) Urine Yeast (Auto) RPR Titer HIV 1&2 Antibody Screen HIV P24 Antigen 03/02/19 03/03/19 03/03/19 06:18 06:17 17:00 WBC RBC Hgb Hct MCV MCH MCHC RDW Plt Count MPV Sodium Potassium Chloride Carbon Dioxide Anion Gap BUN Creatinine Est GFR (CKD-EPI)AfAm Est GFR (CKD-EPI)NonAf POC Glucometer 84 88 130 Random Glucose Calcium Total Bilirubin AST ALT Alkaline Phosphatase Total Protein Albumin Urine Color Urine Appearance Urine pH Ur Specific [place] Urine Protein Urine Glucose (UA) Urine Ketones Urine Blood Urine Nitrite Urine Bilirubin Urine Urobilinogen Ur Leukocyte Esterase Urine WBC (Auto) Urine RBC (Auto) Urine Casts (Auto) U Epithel Cells (Auto) Urine Bacteria (Auto) Urine Yeast (Auto) RPR Titer HIV 1&2 Antibody Screen HIV P24 Antigen 03/04/19 03/04/19 03/05/19 06:19 16:28 07:04 WBC RBC Hgb Hct MCV MCH MCHC RDW Plt Count MPV Sodium Potassium Chloride Carbon Dioxide Anion Gap BUN Creatinine Est GFR (CKD-EPI)AfAm Est GFR (CKD-EPI)NonAf POC Glucometer 88 88 86 Random Glucose Calcium Total Bilirubin AST ALT Alkaline Phosphatase Total Protein Albumin Urine Color Urine Appearance Urine pH Ur Specific [place] Urine Protein Urine Glucose (UA) Urine Ketones Urine Blood Urine Nitrite Urine Bilirubin Urine Urobilinogen Ur Leukocyte Esterase Urine WBC (Auto) Urine RBC (Auto) Urine Casts (Auto) U Epithel Cells (Auto) Urine Bacteria (Auto) Urine Yeast (Auto) RPR Titer HIV 1&2 Antibody Screen HIV P24 Antigen Pt refused repeat lab work for monitoring his abnormal results Pt is alert o x2 to place and name nad oob ambulating with cane and anxious to leave. Assessment: 03/05/19 11:03 R/O Delusional Ideations hx multiple comorbid conditions with poor management/poor patient insight to disease conditions. Plan: D/w Dr. Patten and pt will be seen by Psych, Dr. Caruso for evaluation/stability to determine capacity to make decision to leave. Repeat done CBC and CMP today. .
--- NOTE | 2019-03-05 12:33 | CONSULT ---
[facility] Psychiatric Consult - Data Date of interview: 03/05/19 Admission source: Residential in [place], [place] Identifying data: Mr Cordova is a 58 years old Black male, father of 4 children, unemployed receving SSI. homeless admitted to [facility] on 02/24/10 for inparient rehabilitation for alcohol and cocaine Substance Abuse History: Reports history of alcohol and crack cocaine use. Refer to addiction counselor's summary Medical History: Significant for bronchial asthma, hypertension, hypercholesterolemia, type 2 diabetes mellitus, acute kidney injury, hypothyroidism, history of umbilical hernia repair. Smokes 5 cigarettes daily Psychiatric History: Patient denies history of previous psychiatric treatment. Record indicates a previous psychiatric contact with Dr Lees on 06/20/17 reporting feeling depressed due to the loss of his year ago and being homeless. Physical/Sexual Abuse/Trauma History: Denies history of sexual, physical and verbal abuse. Additional Comment: Reports one previous misdemeanor arrest on charges of trespassing(jumping turnstile) Mental Status Exam - Mental Status Exam Alert and Oriented to: Time, Place, Person Cognitive Function: Fair Patient Appearance: Disheveled Mood: Hopeful, Euthymic Affect: Appropriate Patient Behavior: Cooperative Speech Pattern: Clear Voice Loudness: Normal Thought Process: Intact, Goal Oriented Thought Disorder: Not Present Hallucinations: Denies Suicidal Ideation: Denies Homicidal Ideation: Denies Insight/Judgement: Fair Sleep: Well Appetite: Good Muscle strength/Tone: Normal Gait/Station: Normal Psychiatric Findings - Problem List ([place] 1, 2,3) (1) Alcohol dependence Current Visit: Yes Status: Acute (2) Cocaine dependence Current Visit: Yes Status: Acute Qualifiers: Substance use status: uncomplicated Qualified Code(s): F14.20 - Cocaine dependence, uncomplicated (3) Nicotine dependence Current Visit: Yes Status: Chronic Qualifiers: Nicotine product type: cigarettes Substance use status: uncomplicated Qualified Code(s): F17.210 - Nicotine dependence, cigarettes, uncomplicated (4) Hyperlipidemia Current Visit: Yes Status: Chronic Qualifiers: Hyperlipidemia type: unspecified Qualified Code(s): E78.5 - Hyperlipidemia , unspecified (5) Hypothyroid Current Visit: Yes Status: Chronic Qualifiers: Hypothyroidism type: unspecified Qualified Code(s): E03.9 - Hypothyroidism , unspecified (6) Insulin dependent diabetes mellitus Current Visit: Yes Status: Chronic (7) JENNY (acute kidney injury) Current Visit: No Status: Acute (8) Alcohol dependence Current Visit: No Status: Acute (9) Asthma Current Visit: No Status: Chronic - Initial Treatment Plan Initial Treatment Plan: Sample Taker Operator was asked to see patient to rule out "Delusion" because he requesting to leave this program despite having a medical problem that needs to be addressed. He told staff that he wants to leave today to go to [place]. After assessing patient, marine underwriter found out that he has [employer] means(SSI ) to by a bus ticket as he said he will do and he has children living in [place]. He gave marine underwriter two contact numbers: which is Shemar Downs, his oldest and which is Jennifer, another son. He told marine underwriter that he called his children 3 days ago and they are expecting him. These contact numbers wee given to patient's program counselor for verification. Therefore above information is proof that patient does not have a fixed, false idea despite evidence to the contrary. It is reality base. Patient has the mean to travel and he has family expecting him. Patient is also capable of informed consent. He understands the severity of his medical issue and the consequence of leaving the program without addressing it
--- NOTE | 2019-03-05 13:19 | DS ---
[facility] Rehab Discharge Summary - [facility] Rehab Discharge Summary Admission Date: 02/24/19 Discharge Date: 03/05/19 - History Present History: Alcohol dependence Additional Comments: Pt is a 58 y/o male with a hx of alcohol use admitted to rehab and requesting to discharge today. Pt states he is going to [place] by bus today to his children and stated he has two sons in [place], giving names and phone numbers per psych consult notes. Pt also reports to this creative writer he lives at [address] [place] [address] in [place] and will be going there first before travelling. Pt reports he has no primary care doctor but had been given medications Rx by the "facility" doctor(s) before coming here. Pertinent Past History: Asthma HTN DM HLD Obesity Use of cane for ambulation Depression(not on med) - Discharge Physical Exam Vital Signs: Vital Signs Temperature 97.9 F 03/04/19 06:46 Pulse Rate 60 03/05/19 06:50 Respiratory Rate 18 03/05/19 06:50 Blood Pressure 133/77 03/05/19 06:50 O2 Sat by Pulse Oximetry (%) Alert oriented to self and place but not to day of week. nad oob ambulating with steady gait with a cane cardiac:s1 s2,rrr lungs:cta,rama abdomen:soft,+bs,nt,nd extremities/skin:no edema,full ROM;skin intact. Pertinent Admission Physical Exam Findings: Laboratory Tests 02/25/19 02/25/19 02/25/19 07:30 08:35 08:35 WBC 2.6 L RBC 2.96 L Hgb 8.9 L Hct 26.3 L D MCV 88.8 MCH 30.0 MCHC 33.8 RDW 16.8 H Plt Count 159 MPV 9.9 Sodium 137 Potassium 5.4 H Chloride 104 Carbon Dioxide 26 Anion Gap 6 L BUN 48.0 H Creatinine 5.1 H Est GFR (CKD-EPI)AfAm 13.26 Est GFR (CKD-EPI)NonAf 11.44 POC Glucometer 132 Random Glucose 168 H Calcium 8.8 Total Bilirubin 0.8 AST 49 H ALT 42 Alkaline Phosphatase 48 Total Protein 7.0 Albumin 3.7 Urine Color Urine Appearance Urine pH Ur Specific [place] Urine Protein Urine Glucose (UA) Urine Ketones Urine Blood Urine Nitrite Urine Bilirubin Urine Urobilinogen Ur Leukocyte Esterase Urine WBC (Auto) Urine RBC (Auto) Urine Casts (Auto) U Epithel Cells (Auto) Urine Bacteria (Auto) Urine Yeast (Auto) RPR Titer HIV 1&2 Antibody Screen HIV P24 Antigen 02/25/19 02/25/19 02/25/19 08:35 08:35 16:30 WBC RBC Hgb Hct MCV MCH MCHC RDW Plt Count MPV Sodium Potassium Chloride Carbon Dioxide Anion Gap BUN Creatinine Est GFR (CKD-EPI)AfAm Est GFR (CKD-EPI)NonAf POC Glucometer 71 Random Glucose Calcium Total Bilirubin AST ALT Alkaline Phosphatase Total Protein Albumin Urine Color Urine Appearance Urine pH Ur Specific [place] Urine Protein Urine Glucose (UA) Urine Ketones Urine Blood Urine Nitrite Urine Bilirubin Urine Urobilinogen Ur Leukocyte Esterase Urine WBC (Auto) Urine RBC (Auto) Urine Casts (Auto) U Epithel Cells (Auto) Urine Bacteria (Auto) Urine Yeast (Auto) RPR Titer Nonreactive HIV 1&2 Antibody Screen Negative HIV P24 Antigen Negative 02/26/19 02/26/19 02/26/19 06:03 08:00 08:00 WBC 2.7 L RBC 3.28 L Hgb 9.7 L Hct 29.3 L MCV 89.1 MCH 29.5 MCHC 33.1 RDW 16.9 H Plt Count 165 MPV 8.6 D Sodium 137 Potassium 5.3 H Chloride 106 Carbon Dioxide 26 Anion Gap 6 L BUN 42.9 H Creatinine 4.5 H Est GFR (CKD-EPI)AfAm 15.43 Est GFR (CKD-EPI)NonAf 13.31 POC Glucometer 65 Random Glucose 115 H Calcium 9.3 Total Bilirubin 0.2 AST 42 H ALT 37 Alkaline Phosphatase 51 Total Protein 7.3 Albumin 3.9 Urine Color Urine Appearance Urine pH Ur Specific [place] Urine Protein Urine Glucose (UA) Urine Ketones Urine Blood Urine Nitrite Urine Bilirubin Urine Urobilinogen Ur Leukocyte Esterase Urine WBC (Auto) Urine RBC (Auto) Urine Casts (Auto) U Epithel Cells (Auto) Urine Bacteria (Auto) Urine Yeast (Auto) RPR Titer HIV 1&2 Antibody Screen HIV P24 Antigen 02/26/19 02/26/19 02/27/19 08:40 17:01 06:01 WBC RBC Hgb Hct MCV MCH MCHC RDW Plt Count MPV Sodium Potassium Chloride Carbon Dioxide Anion Gap BUN Creatinine Est GFR (CKD-EPI)AfAm Est GFR (CKD-EPI)NonAf POC Glucometer 69 46 Random Glucose Calcium Total Bilirubin AST ALT Alkaline Phosphatase Total Protein Albumin Urine Color Yellow Urine Appearance Clear Urine pH 5.5 D Ur Specific [place] 1.012 Urine Protein 1+ H Urine Glucose (UA) Negative Urine Ketones Negative Urine Blood Trace Urine Nitrite Negative Urine Bilirubin Negative Urine Urobilinogen 0.2 Ur Leukocyte Esterase Negative Urine WBC (Auto) 5 Urine RBC (Auto) 5.5 Urine Casts (Auto) 2 U Epithel Cells (Auto) 2.7 Urine Bacteria (Auto) 6.2 Urine Yeast (Auto) Trace RPR Titer HIV 1&2 Antibody Screen HIV P24 Antigen 02/27/19 02/27/19 02/27/19 06:45 14:03 14:15 WBC RBC Hgb Hct MCV MCH MCHC RDW Plt Count MPV Sodium Potassium Chloride Carbon Dioxide Anion Gap BUN Creatinine Est GFR (CKD-EPI)AfAm Est GFR (CKD-EPI)NonAf POC Glucometer 85 49 53 Random Glucose Calcium Total Bilirubin AST ALT Alkaline Phosphatase Total Protein Albumin Urine Color Urine Appearance Urine pH Ur Specific [place] Urine Protein Urine Glucose (UA) Urine Ketones Urine Blood Urine Nitrite Urine Bilirubin Urine Urobilinogen Ur Leukocyte Esterase Urine WBC (Auto) Urine RBC (Auto) Urine Casts (Auto) U Epithel Cells (Auto) Urine Bacteria (Auto) Urine Yeast (Auto) RPR Titer HIV 1&2 Antibody Screen HIV P24 Antigen 02/27/19 02/27/19 02/28/19 15:15 16:35 06:22 WBC RBC Hgb Hct MCV MCH MCHC RDW Plt Count MPV Sodium Potassium Chloride Carbon Dioxide Anion Gap BUN Creatinine Est GFR (CKD-EPI)AfAm Est GFR (CKD-EPI)NonAf POC Glucometer 62 82 58 Random Glucose Calcium Total Bilirubin AST ALT Alkaline Phosphatase Total Protein Albumin Urine Color Urine Appearance Urine pH Ur Specific [place] Urine Protein Urine Glucose (UA) Urine Ketones Urine Blood Urine Nitrite Urine Bilirubin Urine Urobilinogen Ur Leukocyte Esterase Urine WBC (Auto) Urine RBC (Auto) Urine Casts (Auto) U Epithel Cells (Auto) Urine Bacteria (Auto) Urine Yeast (Auto) RPR Titer HIV 1&2 Antibody Screen HIV P24 Antigen 02/28/19 03/01/19 03/01/19 16:35 06:15 16:50 WBC RBC Hgb Hct MCV MCH MCHC RDW Plt Count MPV Sodium Potassium Chloride Carbon Dioxide Anion Gap BUN Creatinine Est GFR (CKD-EPI)AfAm Est GFR (CKD-EPI)NonAf POC Glucometer 115 109 149 Random Glucose Calcium Total Bilirubin AST ALT Alkaline Phosphatase Total Protein Albumin Urine Color Urine Appearance Urine pH Ur Specific [place] Urine Protein Urine Glucose (UA) Urine Ketones Urine Blood Urine Nitrite Urine Bilirubin Urine Urobilinogen Ur Leukocyte Esterase Urine WBC (Auto) Urine RBC (Auto) Urine Casts (Auto) U Epithel Cells (Auto) Urine Bacteria (Auto) Urine Yeast (Auto) RPR Titer HIV 1&2 Antibody Screen HIV P24 Antigen 03/02/19 03/03/19 03/03/19 06:18 06:17 17:00 WBC RBC Hgb Hct MCV MCH MCHC RDW Plt Count MPV Sodium Potassium Chloride Carbon Dioxide Anion Gap BUN Creatinine Est GFR (CKD-EPI)AfAm Est GFR (CKD-EPI)NonAf POC Glucometer 84 88 130 Random Glucose Calcium Total Bilirubin AST ALT Alkaline Phosphatase Total Protein Albumin Urine Color Urine Appearance Urine pH Ur Specific [place] Urine Protein Urine Glucose (UA) Urine Ketones Urine Blood Urine Nitrite Urine Bilirubin Urine Urobilinogen Ur Leukocyte Esterase Urine WBC (Auto) Urine RBC (Auto) Urine Casts (Auto) U Epithel Cells (Auto) Urine Bacteria (Auto) Urine Yeast (Auto) RPR Titer HIV 1&2 Antibody Screen HIV P24 Antigen 03/04/19 03/04/19 03/05/19 06:19 16:28 07:04 WBC RBC Hgb Hct MCV MCH MCHC RDW Plt Count MPV Sodium Potassium Chloride Carbon Dioxide Anion Gap BUN Creatinine Est GFR (CKD-EPI)AfAm Est GFR (CKD-EPI)NonAf POC Glucometer 88 88 86 Random Glucose Calcium Total Bilirubin AST ALT Alkaline Phosphatase Total Protein Albumin Urine Color Urine Appearance Urine pH Ur Specific [place] Urine Protein Urine Glucose (UA) Urine Ketones Urine Blood Urine Nitrite Urine Bilirubin Urine Urobilinogen Ur Leukocyte Esterase Urine WBC (Auto) Urine RBC (Auto) Urine Casts (Auto) U Epithel Cells (Auto) Urine Bacteria (Auto) Urine Yeast (Auto) RPR Titer HIV 1&2 Antibody Screen HIV P24 Antigen Abnormal labs Pt refused repeat labs x 2 over the weekend. Repeat CBC and CMP done today but patient declined to wait for result stating he will follow up on his on after discharge. Meanwhile, copies of available results given to patient in discharge package for follow up with his facility doctor(s). - Treatment Discharge Condition: Discharge condition good Hospital Course: Rehabilitated safely. Responded mostly well and attended groups for the most part. - Medication Discharge Medications: Ambulatory Orders Albuterol Sulfate Inhaler - [Ventolin HFA Inhaler -] 2 inh PO Q4H PRN 30 Days # 1 inhaler 03/05/19 Aspirin [ASA -] 81 mg PO DAILY #30 tab.chew 03/05/19 Glipizide Xl [Glucotrol Xl -] 5 mg PO DAILY #30 tab.er.24 03/05/19 Hydrochlorothiazide [Hctz -] 12.5 mg PO DAILY #30 cap 03/05/19 Levothyroxine [Synthroid -] 100 mcg PO DAILY #30 tablet 03/05/19 Lisinopril [Prinivil] 10 mg PO DAILY #30 tablet 03/05/19 - Medication-Assisted Treatment (MAT) Medication-Assisted Treatment (MAT): No - Discharge Instructions Diet, activity, other medical instructions: Diet:LORRAINE/NCS Activity: oob ad jeimy with a cane Other medical instructions:Follow up with aftercare/[facility] as recommended at [facility] on [address] [place] [address]. ext [phone]. - Diagnosis (1) Diabetes mellitus Current Visit: Yes Status: Chronic Qualifiers: Diabetes mellitus type: type 2 (2) Alcohol dependence Current Visit: Yes Status: Chronic Qualifiers: Substance use status: uncomplicated Qualified Code(s): F10.20 - Alcohol dependence, uncomplicated (3) History of asthma Current Visit: Yes Status: Chronic (4) Hyperlipidemia Current Visit: Yes Status: Chronic Qualifiers: Hyperlipidemia type: unspecified Qualified Code(s): E78.5 - Hyperlipidemia , unspecified (5) Hypothyroid Current Visit: Yes Status: Chronic Qualifiers: Hypothyroidism type: unspecified Qualified Code(s): E03.9 - Hypothyroidism , unspecified (6) Nicotine dependence Current Visit: Yes Status: Chronic Qualifiers: Nicotine product type: cigarettes Substance use status: uncomplicated Qualified Code(s): F17.210 - Nicotine dependence, cigarettes, uncomplicated (7) Obesity (BMI 30-39.9) Current Visit: Yes Status: Chronic (8) Asthma Current Visit: Yes Status: Chronic Qualifiers: Asthma persistence: unspecified Asthma complication type: unspecified (9) Hypertension Current Visit: Yes Status: Chronic Qualifiers: Hypertension type: essential hypertension Qualified Code(s): I10 - Essential (primary) hypertension - Follow-up Referral Minutes to complete discharge: 35 - AMA Did Patient Leave Against Medical Advice: No Additional Comments: Courtesy Rx as above medications x 30 days electronically sent to [facility] on [address] Pt's home pharmacy unreachable for confirmation of active use and listed phone number "not in service' on voicemail.
[2019-03-05 15:37] LABS: HEMATOCRIT 27.5 % (35.4-49); HEMOGLOBIN 9.2 GM/dL (11.7-16.9); MCH 29.8 pg (25.7-33.7); MCHC 33.5 g/dl (32.0-35.9); MEAN CELL VOLUME 88.8 fl (80-96); MEAN PLT VOLUME 9.7 fl (7.5-11.1); PLATELET COUNT 181 K/MM3 (134-434); RDW 16.7 % (11.9-15.9); WHITE BLOOD COUNT 3.5 K/mm3 (4.0-10.0)
[2019-03-05 15:43] LABS: BILIRUBIN,TOTAL 0.2 mg/dL (0.2-1); BLOOD UREA NITROGEN 43.1 mg/dL (7-18); POTASSIUM 5.2 mmol/L (3.5-5.1); TOT PROT 7.4 g/dl (6.4-8.2)
== END 2019-03-05 13:23 | disposition home or self-care (01) | DRG 772 ==
LOC: YASAS 16:37 → Y5N 19:40
PROVIDERS: ADMIT Neuromusculoskeletal Medicine & OMM; ATTEND Neuromusculoskeletal Medicine & OMM
PROC: HZ42ZZZ Group Counseling for Substance Abuse Treatment, Cognitive-Behavioral (ICD-10-PCS; principal; 2019-02-24)
DX: F10.20 Alcohol dependence, uncomplicated (principal); F14.20 Cocaine dependence, uncomplicated; F32.9 Major depressive disorder, single episode, unspecified; I10 Essential (primary) hypertension; E11.9 Type 2 diabetes mellitus without complications; Z79.4 Long term (current) use of insulin; N17.9 Acute kidney failure, unspecified; E03.9 Hypothyroidism, unspecified; E87.5 Hyperkalemia; R00.1 Bradycardia, unspecified; R94.31 Abnormal electrocardiogram [ECG] [EKG]; R29.6 Repeated falls; Z99.89 Dependence on other enabling machines and devices; Z79.82 Long term (current) use of aspirin; Z91.013 Allergy to seafood; Z59.0 Homelessness
CPT/HCPCS: 36415; 80053; 81003; 82962; 84436; 85027; 86593; 87389; 93005; 93010; Q2036